=== PATIENT | female | born 2000 | race Asian ===

== ENCOUNTER 2023-02-19 18:27 | Emergency (ER) | payer OTHER, SELFPAY ==
[2023-02-19 18:33] VITALS: BP 129/84; PULSE 102; RESP 18; TEMP 37.5; O2SAT 100; BMI 16.6
--- NOTE | 2023-02-19 18:43 | ED_ITS ---
HPI - General Adult General Time Seen by Provider: 18:43 Date Seen: 02/19/23 Chief complaint: Chest Pain Stated complaint: Chest pains Time Seen by Provider: 02/19/23 18:37 Source: patient Mode of arrival: ambulatory Limitations: no limitations History of Present Illness HPI narrative: 22-year-old female comes in today with chest pain. Patient is intermittent substernal chest pain for the last couple of days. Worse lying down and sitting, better standing walking. Feels like she has to concentrate get a deep breath. No cough. She does relate being hit in the chest while playing basketball couple weeks ago, but pain did not start at that time. No nausea, vomiting, diarrhea, fever. Has not taken anything for her pain. Related Data Home Medications Medication Instructions Recorded Confirmed norelgestromin 150 mcg-e.estradiol patch transdermal 02/19/23 35 mcg/24 hr weekly transderm patch (Zafemy) Allergies Allergy/AdvReac Type Severity Reaction Status Date / Time amoxicillin Allergy Verified 02/19/23 18:36 PFSH PFSH Social History Smoking Status: Never smoker Do you use any of these nicotine containing products: None How often do you have a drink containing alcohol: never AUDIT-C Alcohol total score: 0 Non-prescribed substance use: denies use Exam Narrative: Exam Narrative: General: Well-developed and well-nourished, no acute distress Head: Atraumatic and normocephalic Eyes: Pupils are equal reactive, extraocular motions intact, conjunctiva clear ENT: External nose and ears are normal, posterior pharynx without erythema or exudate Neck: No midline cervical tenderness, full spontaneous range of motion the neck, trachea midline, no adenopathy Heart: Tachycardia, no rub or murmur Lungs: Clear to auscultation bilaterally without wheezes or crackles, right chest wall /sternocostal tenderness which reproduces complaint Abdomen: Soft, nontender, nondistended with active bowel sounds Musculoskeletal: No tenderness, deformity, or edema Neurologic: Awake, alert, and oriented x3, no gross focal neurologic deficits, cranial nerves intact as tested Psych: Mood and affect are appropriate Skin: No rashes Const: Vital Signs, click to edit/add: Vital Signs - 24 hr 02/19/23 18:33 02/19/23 20:27 02/19/23 20:28 Temperature 99.5 F 97.9 F Pulse Rate [Right Pulse Oximeter] 102 H 95 Respiratory Rate 18 16 Blood Pressure 139/92 H Blood Pressure [Le ft Upper Arm] 129/84 139/87 Pulse Oximetry 100 95 Oxygen Delivery Me thod Room Air Room Air Course Course Hospital Course: patient seen examined, prior records are reviewed. Patient presents today with chest pain which is been going on for couple of days. Not consistent, not related to activity but does seem worse lying down raising possibility of pericarditis. Patient also is noted to be tachycardic and is on control pills, concern for possible pulmonary embolism although no shortness of breath or pleuritic pain. Labs are ordered along with CT PE study to evaluate for pericardial effusion, pulmonary embolism. Reevaluation(s) Time of Reevaluation #1: 19:52 Reevaluation #1: Labs independently interpreted by me with the negative CBC, normal basic panel, negative troponin. test is negative. CT PE protocol is pending. Time of Reevaluation #2: 20:31 Reevaluation #2: CT scan of the chest independently interpreted by me does not demonstrate any central pulmonary emboli, no pericardial effusion or cardiomegaly, lungs are without infiltrate or effusion. Symptoms are most consistent with costochondritis. Patient will be started on prednisone and stable for discharge. Follow-up with primary care as needed. May take Tylenol or ibuprofen as needed for pain also. Vital Signs Vital signs: Initial Vital Signs Temperature 99.5 F 02/19/23 18:33 Temperature Source Temporal Artery Scan 02/19/23 18:33 Pulse Rate 102 H 02/19/23 18:33 Respiratory Rate 18 02/19/23 18:33 Blood Pressure 129/84 02/19/23 18:33 Blood Pressure Mean 99 02/19/23 18:33 Blood Pressure Position Sitting 02/19/23 18:33 Pulse Oximetry 100 02/19/23 18:33 Oxygen Delivery Method Room Air 02/19/23 18:33 Vital Signs Temperature 99.5 F 02/19/23 18:33 Pulse Rate 102 H 02/19/23 18:33 Respiratory Rate 18 02/19/23 18:33 Blood Pressure 129/84 02/19/23 18:33 Pulse Oximetry 100 02/19/23 18:33 Oxygen Delivery Method Room Air 02/19/23 18:33 Temperature 97.9 F 02/19/23 20:27 Pulse Rate 95 02/19/23 20:27 Respiratory Rate 16 02/19/23 20:27 Blood Pressure 139/92 H 02/19/23 20:28 Pulse Oximetry 95 02/19/23 20:27 Oxygen Delivery Method Room Air 02/19/23 20:27 Medical Decision Making Lab Data Labs: Lab Results 02/19/23 02/19/23 Range/Units 19:05 19:06 WBC 10.18 (4.50-11.00) K/uL RBC 5.16 (4.00-5.20) m/uL Hgb 14.7 (12.0-16.0) gm/dL Hct 43.8 (33.0-51.0) % MCV 85 (80-100) fL MCH 29 (26-34) pg MCHC 34 (32-36) gm/dL RDW Coeff of Home 12.1 (11.5-15.5) % Plt Count 351 (140-440) K/uL Neut % (Auto) 38.3 L (42.0-72.0) % Lymph % (Auto) 55.8 H (20-44) % Wood % (Auto) 4.6 (0.0-11.0) % Eos % (Auto) 0.7 (0.0-7.0) % Baso % (Auto) 0.5 (0.0-3.0) % Neut # (Auto) 3.90 (1.7-7.0) K/uL Lymph # (Auto) 5.70 H (0.90-2.90) K/uL Wood # (Auto) 0.50 (0.00-0.90) K/UL Eos # (Auto) 0.07 (0.00-0.50) K/uL Baso # (Auto) 0.05 (0.00-0.30) K/uL Abs Immat Gran (auto) 0.01 (0.00-0.30) K/uL Imm/Tot Granulo (auto) 0.1 % Diff Slide Review Acceptable Review (Acceptable) Sodium 137 (135-149) mmol/L Potassium 3.6 (3.6-5.1) mmol/L Chloride 103 (96-114) mmol/L Carbon Dioxide 28 (20-32) mmol/L BUN 15 (5-24) mg/dL Creatinine 0.8 (0.5-1.5) mg/dL Estimated Creat Clear 64.22 Estimated GFR 106 ml/min Glucose 89 (60-115) mg/dL Calcium 9.1 (8.4-10.6) mg/dL Magnesium 1.7 (1.5-2.6) mg/dL C-Reactive Protein < 0.5 L (0.5-1.0) mg/dL HCG, Qual Negative (Negative) POC Troponin I 0.00 L (0.01-0.04) ng/ml Discharge Plan Discharge Clinical Impression: Acute costochondritis Patient Disposition: Home, Self-Care Condition: Stable Instructions: Costochondritis (ED) Additional Instructions: Take prednisone as prescribed. Take Tylenol and ibuprofen as needed for pain. Ice before and after activity. Follow-up with your primary care doctor in 1 week if not feeling better. Activity Level: Activity as Tolerated Prescriptions: No Action Zafemy 150-35 mcg/24 hr patch weekly transdermal Stand Alone Forms: [employer] Info Instructions
--- NOTE | 2023-02-19 18:46 | CRLHL7_ITS ---
For Patients: As a result of the Century Cures Act, medical imaging exams and procedure reports are released immediately into your electronic medical record. You may view this report before your referring provider. If you have questions, please contact your health care provider. INDICATION: Chest pain, shortness of breath, tachycardia. TECHNIQUE: CT chest PE was acquired with 80 cc Isovue 370 IV contrast. Permanently recorded images are archived. COMPARISON: None. FINDINGS: Heart and vasculature: Contrast opacification of the pulmonary arterial tree is adequate. No sign of pulmonary embolism. Heart size is normal. Thoracic aorta and pulmonary artery are normal in caliber. Lungs and pleura: No suspicious nodules or consolidation. No pleural effusions or pneumothorax. Lymph nodes/mediastinum: No mediastinal, hilar, or axillary adenopathy. Chest wall: No masses. Thyroid: Unremarkable. Upper abdomen: No acute or significant findings. Bones: Unremarkable for age. IMPRESSION: No pulmonary embolism. Unremarkable CT of the chest. No acute findings. Please note that all CT scans at this facility use dose modulation, iterative reconstruction, and/or weight-based dosing when appropriate to reduce radiation dose to as low as reasonably achievable. Dictated by Dinh Monique MD @ 02/19/2023 9:15:24 PM (Electronically Signed)
[2023-02-19 19:25] LABS: Basophils Absolute Auto 0.05 K/uL (0.00-0.30); Basophils Percent Auto 0.5 % (0.0-3.0); Eosinophils Absolute Auto 0.07 K/uL (0.00-0.50); Eosinophils Percent Auto 0.7 % (0.0-7.0); Hematocrit 43.8 % (33.0-51.0); Hemoglobin* 14.7 gm/dL (12.0-16.0); Immature Granulocytes Abs Auto 0.01 K/uL (0.00-0.30); Immature Granulocytes Pct Auto 0.1 %; Lymphocytes Percent Auto 55.8 % (20-44); Mean Corpuscular HGB Conc 34 gm/dL (32-36); Mean Corpuscular Hemoglobin 29 pg (26-34); Mean Corpuscular Volume 85 fL (80-100); Monocytes Percent Auto 4.6 % (0.0-11.0); Neutrophils Percent Auto 38.3 % (42.0-72.0); Platelet Count* 351 K/uL (140-440); RDW Coefficient of Variation % 12.1 % (11.5-15.5); Red Blood Count 5.16 m/uL (4.00-5.20); White Blood Count* 10.18 K/uL (4.50-11.00)
[2023-02-19 19:29] LABS: Slide Review Reflex Yes
[2023-02-19 19:36] LABS: Chloride* 103 mmol/L (96-114); Potassium* 3.6 mmol/L (3.6-5.1); Sodium* 137 mmol/L (135-149)
[2023-02-19 19:39] LABS: Creatinine* 0.8 mg/dL (0.5-1.5); Est. Creatinine Clearance* 64.22; Estimated Glomerular Filt Rate 106 ml/min; HCG Qualitative Serum* Negative (Negative)
[2023-02-19 19:40] LABS: Blood Urea Nitrogen* 15 mg/dL (5-24); Calcium* 9.1 mg/dL (8.4-10.6); Carbon Dioxide* 28 mmol/L (20-32); Glucose* 89 mg/dL (60-115); Magnesium* 1.7 mg/dL (1.5-2.6)
[2023-02-19 19:49] LABS: C Reactive Protein* < 0.5 mg/dL (0.5-1.0)
[2023-02-19] MEDS: 0.9 % SODIUM CHLORIDE 1000 ml 1,000 ML 500 ML IV (20:00)
[2023-02-19 20:06] LABS: Slide Review Acceptable Review (Acceptable)
[2023-02-19 20:27] VITALS: BP 139/87; PULSE 95; RESP 16; TEMP 36.6; O2SAT 95
[2023-02-19 20:28] VITALS: BP 139/92
== END 2023-02-19 21:28 | disposition home or self-care (01) ==
PROVIDERS: Emergency Provider Family Medicine
DX: M94.0 Chondrocostal junction syndrome [Tietze] (principal)
CPT/HCPCS: 36415; 71260; 80048; 83735; 84484; 84703; 85025; 86140; 93005; 99284; 99285; J7030; Q9967

== ENCOUNTER 2023-07-23 17:02 | Emergency (ER) | payer BC, SELFPAY ==
[2023-07-23 17:20] VITALS: BP 131/92; PULSE 86; RESP 16; TEMP 36.6; O2SAT 99; BMI 15.3
--- NOTE | 2023-07-23 17:24 | CRLHL7_ITS ---
For Patients: As a result of the Century Cures Act, medical imaging exams and procedure reports are released immediately into your electronic medical record. You may view this report before your referring provider. If you have questions, please contact your health care provider. INDICATION: Injury. TECHNIQUE: Right ankle 3 views. Permanently recorded images are archived. COMPARISON: None. FINDINGS: Questionable lucency within the base of the 5th metatarsal, which is only partially imaged. No other evidence for fracture. Alignment is normal. No joint effusion. The joint spaces are preserved. The soft tissues are unremarkable. IMPRESSION: Questionable lucency within the base of the 5th metatarsal. Recommend correlation with site for focal tenderness, and dedicated foot radiographs, if clinical concern persists. Dictated by Dinh Monique MD @ 07/23/2023 6:25:06 PM (Electronically Signed)
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
--- NOTE | 2023-07-23 21:30 | ED.NURSE ---
Pt on phone with MD regarding radiology results.
== END 2023-07-23 18:25 | disposition home or self-care (01) ==
LOC: ED 18:12
PROVIDERS: Emergency Provider Family Medicine
DX: S93.401A Sprain of unspecified ligament of right ankle, initial encounter (principal); W19.XXXA Unspecified fall, initial encounter
CPT/HCPCS: 73610; 95992; 99283

== ENCOUNTER 2024-11-08 21:00 | Observation (INO) | payer BC, SELFPAY ==
[2024-11-08] VITALS (9 sets, daily range): BP systolic 115–123; BP diastolic 80–89; PULSE 82–104; RESP 16; TEMP 36.8; O2SAT 97–100; BMI 18.7
--- OUTSIDE RECORDS SUMMARY | 2024-11-08 21:02 | XMS_ITS | Clinical Summary ---
[facility] Address [address] [place] [address] Care Team Providers Care Email Manager Name Role Phone Janet Rodgers MD Primary Care Provider Source Comments You are receiving this document as you are listed as the primary care provider,follow-up provider, or the patient has been referred to you for consultation.This is in compliance with the Medicare and[facility] Hospital[facility] EHR Incentive Program,which states Providers who transition their patient to another setting of careor provider of care or refers their patient to another provider of care shouldprovide summary care record for each transition of care or referral. [facility] Allergies Active Allergy Reactions Criticality Noted Date Comments Amoxicillin Hives,Itching High 02/27/2023 Escitalopram Gastrointestinal Low 11/18/2017 Sertraline Gastrointestinal Low 11/18/2017 Medications hydrOXYzine HCl (ATARAX) 10 MG tabletIndicatio ns:Anxiety Take 1-2 Tablets (10-20 mg) by mouth three times a day as needed for Itching (or sedation) for up to 60 doses. Indications: Feeling Anxious 60 Tablet 1 01/20/2024 Active Active Problems Problem Noted Date Diagnosed Date Fibroids, subserous 11/15/2023 Dysmenorrhea 11/15/2023 RLQ abdominal pain 11/01/2023 Intermenstrual bleeding 11/01/2023 Positive QuantiFERON-TB Gold test 09/18/2023 History of abnormal cervical Pap smear 11/04/202 2 Overview (12/19/2023): [facility] Review: History: 05/2022: ASCUS (age 22) 11/2023: NILM Plan, per ASCCP guidelines: Repeat cytology only in 12 months (11/2024) Patellofemoral pain syndrome of both knees 05/29 Abdominal pain 05/29/2022 Nausea 05/29/2022 Mild episode of recurrent major depressive disor radha 10/03/2017 Anxiety 03/26/2016 Underweight 03/26/2016 Resolved Problems Problem Noted Date Diagnosed Date Resolved Date Alternating constipation and diarrhea 05/29/2022 07/10/2023 Adjustment insomnia 10/03/2017 05/28/20 22 Passive suicidal ideations 10/03/2017 1 Immunizations Immunization Administration Dates Next Due 4vHPV (Gardasil) 05/22/2012,01/14/2012, 2 DTaP 10/06/2002, 1,1999,1999,1999 Flu Vac Preserv Free (3+yrs) 05/22/2012,05/22/20 10 [id number] 07/20/2009 HepA Ped/Adol (1-18 yrs) 05/22/2010,02/03/2007 HepB Ped/Adol (0-18 yrs) 03/17/2004,11/12/2003,1 IPV (Polio) 10/06/2002, 1,1999,1999,1999 Influenza IIV4 (Quadrivalent ) 0.5mL (04649) 08/23/2017 Influenza LAIV3 2-49 years (Flumist) 06/25/2007 MCV4 (Menactra) 10/30/2011 MCV4 Menveo 2m.+ (two vial) 03/26/2016 MMR 11/12/2003,04/16/2000 TB Skin Test (PPD) 11/15/2020 TDAP (ADACEL) 10/30/2011 Tdap 05/28/2022 Varicella 02/03/2007,05/05/2003 Family History Medical History Relation Name Comments Heart Disease Maternal Grandfather Diabetes Maternal Grandmother No Known Problems Paternal Grandfather Thyroid Disorder Sister Cancer Negative Family History Relation Name Status Comments Father young, unk nown cause Mother in childbi rth Brother Maternal Grandfather Maternal Grandmother Paternal Grandfather Paternal Grandmother Sister Alive Social History Tobacco Use Types Packs/Day Years Used Date Smoking Tobacco: Never Smokeless Tobacco: Never Tobacco Cessation:Counseling Given: Not Answered Alcohol Use Standard Drinks/Week Comments Yes 1 (1 standard drink = 0.6 oz pur e alcohol) PHQ-2 Answer Date Recorded PHQ-2 Score 2 12/17/2023 Financial Resource Strain Answer Date R ecorded Is it hard for you to pay fo r the very basics like food, housing, medical care or heating? No 07/07/2023 Food Insecurity Answer Date Recorded Does your food run out before you have the money to buy more? No 07/07/2023 Transportation Needs Answer Date Record ed Does a lack of transportatio n keep you from your medical appointments or from getting your medications? 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 Not on file No t on file Not on file Last Filed Vital Signs Vital Sign Reading Time Taken Comments Blood Pressure 112/79 11/15/2023 11:32 AM CDT Pulse 76 11/15/2023 11:32 AM CDT Temperature 37.2 C (99 F) 06/14/2019 12:09 PM [employer] Respiratory Rate 18 06/14/2019 12:09 PM [employer] Oxygen Saturation 100% 06/14/2019 12:09 PM [employer] Inhaled Oxygen Concentration - - Weight 38.6 kg (85 lb) 07/07/2024 4:59 PM [employer] Height 150.5 cm (4' 11.25) 11/15/2023 11:32 AM CDT Body Mass Index 17.02 11/15/2023 11:32 AM CDT Plan of Treatment Health Maintenance Due Date Last Done Comments COVID-19 Vaccine ( season) 2024 Influenza (#1) 2024 08/23/2017, 05/05, 05/22/2010, Additional history exists Cervical Cancer Screening 11/14/2024 11/15/2023, Chlamydia 11/14/2024 11/15/2023, 05/06, 10/03/2017, Additional history exists Adult Preventive Visit 11/14/2025 11/15/2023, 2021 DTaP/Tdap/Td (7 - Tdap) 05/28/2032 05/28/20, 10/30/2011, 10/06/2002, Additional history exists Zoster/Shingles (1 of 2) 2049 IPV (Polio) Completed 10/06/2002, 10/03, 1999, Additional history exists HepB Completed 03/17/2004, 04/2004, 05/05/2003 Varicella Completed 02/03/2007, 05/05/2003 HepA Completed 05/22/2010, 02/03/2007 HPV Vaccine Completed 05/22/2012, 01/03, 11/02/2011 MCV4 Completed 03/26/2016, 10/30/2011 Tuberculosis Screening Completed 09/17/2023 HIV Screening (Preventive Services) Completed 11/15/2023, 05/28/2022 Hep B Screening ([employer]) Completed 11/15/2023 Hep C Screening (Preventive Services) Completed 11/15/2023, 05/28/2022 Hib Aged Out No longer eligi ble based on patient's age to complete this topic Meningococcal B Aged Out No longer el igible based on patient's age to complete this topic Pneumococcal Aged Out No longer eligi ble based on patient's age to complete this topic Procedures Procedure Name Priority Date/Time Associated Diagnosis Comments HBSAG (HEPATITIS B SURFACE AG) Routine 11/15/2023 12:15 PM CDT Screening examination for venereal disease HIV 1/2 AG/AB 4TH GEN Routine 11/15/2023 12:15 PM CDT Screening examination for venereal disease HEPATITIS C ANTIBODY, WITH REFLEX Routine 11/15/2023 12:15 PM CDT Special screening examination for viral disease CHLAMYDIA & GC (14 YEARS & OLDER) Routine 11/15/2023 12:11 PM CDT Screening examination for venereal disease CYTOLOGY (PAP) Routine 11/15/2023 12:11 PM CDT Screening for malignant neoplasm of cervix TB QUANTIFERON GOLD PLUS Routine 09/17/2023 10:18 AM [employer] PPD screening test from Last 3 Months or Most Recently Relevant to Health Maintenance Results * HIV 1/2 Ag/Ab 4th Generation (11/15/2023 12:15 PM CDT) HIV 1/2 Antigen/Antib fausto (4th generation) Negative (Non Reactive) Negative (Non Reactive) 11/15/2023 6:34 PM CDT [facility] Comment:HIV-1 p24 Antigen an d HIV-1/HIV-2 Antibody not detected Blood Venipuncture / Unknown 11/15/2023 12:15 PM CDT 11/15/2023 12:15 PM CDT Marika Martinez MD LAB_1 Final Result Performing Organization Address [facility] de Phone Number [facility] [address] [place] [address] * Hepatitis C Antibody, with Reflex (11/15/2023 12:15 PM CDT) Pathologist [facility] Hepatitis C Antibody Negative (Non Reactive) Negative (Non Reactive) 11/15/2023 6:34 PM CDT [facility] Comment:Antibodies to HCV no t detected. Does not exclude the possiblity of exposure to HCV. Blood Venipuncture / Unknown 11/15/2023 12:15 PM CDT 11/15/2023 12:15 PM CDT Marika Martinez MD LAB_1 Final Result Performing Organization Address City/[facility]/ZIP Co de Phone Number [facility] [address] [place] [address] * Hepatitis B Surface Antigen (11/15/2023 12:15 PM CDT) Hepatitis B Surface Antigen Negative (Non Reactive) Negative (Non Reactive) 11/15/2023 6:46 PM CDT [facility] Blood Venipuncture / Unknown 11/15/2023 12:15 PM CDT 11/15/2023 12:15 PM CDT us Marika Martinez MD LAB_1 Final Result [facility] [address] * PAP Test (11/15/2023 12:11 PM CDT) Case Report Pap Case: [id number] Authorizing Provider: Marika Martinez MD Collected: 11/15/2023 1211 Ordering Location: [facility] OB-INSTRUCTIONAL SUPPORT ASSISTANT Received: 11/15/[address] [place] [address] Screen: Day Stevenson E, CT (ASCP) Specimen: Pap Test, Routine, Cervix/Endocervix 12/09/2023 11:50 AM CDT [facility] Pap Specimen Adequacy Satisfactory for evaluation, endocervical/sanab[place] sformation zone component present. 12/09/2023 11:50 AM CDT [facility] Pap Interpretation (NILM) Negative for intraepithelial lesion or malignancy. 12/09/2023 11:50 AM CDT [facility] at 1150 CDT Pap Disclaimer The Pap test is a screening test to aid in the detection of cervical and vaginal cancers and their precursor lesions. It is not a diagnostic procedure and should not be used as the sole means of detecting malignancy. Both false-positive and false-negative results may occur. 12/09/2023 11:50 AM CDT [facility] Gross Description The specimen is received in SurePath fixative and properly labeled. 1 Pap-stained SurePath slide is prepared. 12/09/2023 11:50 AM CDT [facility] Embedded Images 05/06/202 4 11:50 AM CDT [facility] Other Specimen Type ENTIRE ENDOCERVIX / Unknown 11/15/2023 12:11 PM CDT 11/15/2023 3:10 PM CDT Comment:LMP: Patient's last menstrual period was 11/01/2023 (approximate). Marika Matrinez MD LAB PATHOLOGY Final Result Performing Organization Address City/[facility]/ZIP Co de Phone Number [facility] [address] [place], [place] [address] * Chlamydia & GC (14 Years and Older): Vagina (11/15/2023 12:11 PM CDT) Chlamydia Trachomatis STD Not Detected Not Detected 11/16/2023 12:51 AM CDT [facility] N. gonorrhoeae STD Not Detected Not Detected 11/16/2023 12:51 AM CDT [facility] Swab STD SPECIMEN FROM VAGINA / Unknown Non-blood Collection / Unknown 11/15/2023 12:11 PM CDT 11/15/2023 3:10 PM CDT Narrative [facility] - 11/16/2023 12:51 AM CDT Test performed by [employer] Mediated Amplification (TMA). us Marika Martinez MD LAB_1 Final Result Performing Organization Address City/[facility] Co de Phone Number [facility] [address] from Last 3 Months or Most Recently Relevant to Health Maintenance Insurance [facility] Care Teams Email Manager Relationship Specialty [place] [address] [address] [address] PCP - General 01/14/12
[2024-11-08 21:53] LABS: Basophils Percent Auto 0.2 % (0.0-3.0); Eosinophils Percent Auto 0.5 % (0.0-7.0); Hematocrit 39.4 % (33.0-51.0); Hemoglobin* 13.3 gm/dL (12.0-16.0); Immature Granulocytes Pct Auto 0.2 %; Lymphocytes Percent Auto 20.4 % (20-44); Mean Corpuscular HGB Conc 34 gm/dL (32-36); Mean Corpuscular Hemoglobin 29 pg (26-34); Mean Corpuscular Volume 84 fL (80-100); Monocytes Percent Auto 5.5 % (0.0-11.0); Neutrophils Percent Auto 73.2 % (42.0-72.0); Platelet Count* 318 K/uL (140-440); RDW Coefficient of Variation % 12.2 % (11.5-15.5); Red Blood Count 4.67 m/uL (4.00-5.20); White Blood Count* 22.37 K/uL (4.50-11.00)
[2024-11-08 21:55] LABS: Slide Review Reflex No
[2024-11-08] MEDS: 0.9 % SODIUM CHLORIDE 1000 ml 1,000 ML IV (21:56)
[2024-11-08] MEDS: ONDANSETRON 2 MG/ML inj 4 MG IVP (21:57)
[2024-11-08] MEDS: HYDROmorphone 0.5 mg/0.5 ml inj IVP (21:58)
[2024-11-08 22:05] LABS: Albumin* 4.4 g/dL (3.3-5.0); Chloride* 103 mmol/L (96-114)
[2024-11-08 22:06] LABS: Potassium* 3.7 mmol/L (3.6-5.1); Sodium* 136 mmol/L (135-149)
[2024-11-08 22:08] LABS: Blood Urea Nitrogen* 16 mg/dL (5-24); Creatinine* 0.6 mg/dL (0.5-1.5); Est. Creatinine Clearance* 91.86; Estimated Glomerular Filt Rate 128 ml/min
[2024-11-08 22:09] LABS: Alanine Aminotransferase* 20 U/L (4-35); Alkaline Phosphatase* 64 U/L (40-150); Anion Gap 8 mEq/L (7-15); Aspartate Amino Transferase* 32 U/L (12-35); Bilirubin Direct* 0.3 mg/dL (0.0-0.5); Bilirubin Total* 0.5 mg/dL (0.1-1.5); Calcium* 9.3 mg/dL (8.4-10.6); Carbon Dioxide* 25 mmol/L (20-32); Glucose* 100 mg/dL (60-115); Lipase* 62 U/L (23-300); Total Protein* 7.5 g/dL (6.0-8.3)
[2024-11-08 22:12] LABS: C Reactive Protein* 0.9 mg/dL (0.5-1.0)
[2024-11-08 22:25] LABS: HCG Qualitative Serum* Negative (Negative); Procalcitonin* < 0.03 ng/mL (<0.50)
[2024-11-08 22:52] LABS: Appearance Urine Clear (Clear); Bilirubin Urine Negative (Negative); Blood Urine Negative (Negative); Color Urine Yellow (Yellow); Glucose Urine Negative (Negative); Ketones Urine Negative (Negative); Leukocyte Esterase Urine Trace (Negative); Nitrite Urine Negative (Negative); Protein Urine Negative (Negative); Urobilinogen Urine 0.2 (0.2-1.0)
--- NOTE | 2024-11-08 22:53 | CRLHL7_ITS ---
For Patients: As a result of the Century Cures Act, medical imaging exams and procedure reports are released immediately into your electronic medical record. You may view this report before your referring provider. If you have questions, please contact your health care provider. INDICATION: Right lower quadrant pain. TECHNIQUE: CT abdomen and pelvis acquired with 43 cc Omnipaque 350 IV contrast. COMPARISON: None. FINDINGS: Lower chest: Unremarkable. Liver: Unremarkable. Normal in size and attenuation. No suspicious masses. Gallbladder and bile ducts: Unremarkable. No stones or inflammation. No biliary dilatation. Pancreas: Unremarkable. No mass or inflammation. Spleen: Unremarkable. Normal in size. No masses. Adrenal glands: Unremarkable. No nodules. Kidneys: Unremarkable. No suspicious masses, stones, or hydronephrosis. GI tract: Normal in caliber. No sign of mass or inflammation. Normal appearance of the appendix (, ). Vasculature: Abdominal aorta is normal in caliber. Mesenteric arteries are patent. Lymph nodes: No lymphadenopathy. Peritoneum/Abdominal Wall: Unremarkable. No sign of mass or infiltration. No free air or significant free fluid. Pelvis: Possible mild circumferential bladder wall thickening. Right adnexal cyst measuring 1.6 cm () Bones: Unremarkable for age. IMPRESSION: 1. No definite acute findings to explain the patient`s symptoms. Normal appearance of the appendix. 2. Possible mild circumferential bladder wall thickening. Correlate with urinalysis to rule out cystitis. 3. No definite evidence of reproductive organ pathology, but these structures are not well evaluated on CT. Pelvic ultrasound could be considered for more detailed evaluation, if clinically indicated. Please note that all CT scans at this facility use dose modulation, iterative reconstruction, and/or weight-based dosing when appropriate to reduce radiation dose to as low as reasonably achievable. Dictated by Angel Grijalva MD @ 11/08/2024 11:38:48 PM (Electronically Signed)
--- NOTE | 2024-11-08 23:05 | ED_ITS ---
HPI - Abdominal Pain General Date Seen: 11/08/24 <Crescencio Presley MD - Last Filed: 11/09/24 00:23> Chief Complaint: Abdominal Pain <Crescencio Presley MD - Last Filed: 11/09/24 00:23> Stated Complaint: Lower R abdominal pain <Crescencio Presley MD - Last Filed: 11/09/24 00:23> Time Seen by Provider: 11/08/24 21:28 <Crescencio Presley MD - Last Filed: 11/09/24 00:23> Source: patient, family, RN notes reviewed and old records reviewed <Crescencio Presley MD - Last Filed: 11/09/24 00:23> Mode of arrival: ambulatory <Crescencio Preslye MD - Last Filed: 11/09/24 00:23> Limitations: no limitations <Crescencio Presley MD - Last Filed: 11/09/24 00:23> History of Present Illness HPI narrative: Patient is a very nice 24-year-old female who presents here with right- sided abdominal pain this started approximately 2:00 a.m. today no history of any problems in the past such as kidney stone or other issues she denies any history of any a previous abdominal surgery denies any vaginal discharge thinks she probably is not but she gets her periods very irregularly. He is sexually active with 1 partner was with her here. No history of STDs in the past. Denies any fevers chills or sweats, did eat some food today, but a little less than normal, hurts to walk she describes to me, no radiation of pain, no nausea no vomiting, no diarrhea no dysuria frequency. <Crescencio Presley MD - Last Filed: 11/09/24 00:23> MD elicited complaint: abdominal pain <Crescencio Presley MD - Last Filed: 11/09/24 00:23> Pertinent past history: none <Crescencio Presley MD - Last Filed: 11/09/24 00:23> Onset (ago): hour(s) <Crescencio Presley MD - Last Filed: 11/09/24 00:23> Pain Consistency: constant <Crescencio Presley MD - Last Filed: 11/09/24 00:23> Location: RLQ <Crescencio Presley MD - Last Filed: 11/09/24 00:23> Severity: moderate <Crescencio Presley MD - Last Filed: 11/09/24 00:23> Quality: stabbing <Crescencio Presley MD - Last Filed: 11/09/24 00:23> Radiation: none <Crescencio Presley MD - Last Filed: 11/09/24 00:23> Migration to: no migration <Crescencio Presley MD - Last Filed: 11/09/24 00:23> Exacerbating factors: movement <Crescencio Presley MD - Last Filed: 11/09/24 00:23> Relieving factors: rest <Crescencio Presley MD - Last Filed: 11/09/24 00:23> Associated symptoms: denies other symptoms <Crescencio Presley MD - Last Filed: 11/09/24 00:23> Related Data Patient : No <Crescencio Presley MD - Last Filed: 11/09/24 00:23> Home Medications: Home Medications ?Medication ?Instructions ?Recorded ?Confirmed norelgestromin 150 mcg-e.estradiol 1 patch transdermal 02/19/23 35 mcg/24 hr weekly transderm patch (Zafemy) <Crescencio Presley MD - Last Filed: 11/09/24 00:23> Allergies/Adverse Reactions: Allergies Allergy/AdvReac Type Severity Reaction Status Date / Time amoxicillin Allergy Verified 11/08/24 23:15 <Crescencio Presley MD - Last Filed: 11/09/24 00:23> Review of Systems Status of ROS Reports: 10 or more systems reviewed and unremarkable except as noted in History and below <Crescencio Presley MD - Last Filed: 11/09/24 00:23> PFSH PFSH Social History: Social History Smoking Status: Never smoker Do you use any of these nicotine containing products: None How often do you have a drink containing alcohol: never AUDIT-C Alcohol total score: 0 Non-prescribed substance use: denies use <Crescencio Presley MD - Last Filed: 11/09/24 00:23> Exam Narrative: Exam Narrative: On examination in room 7, she is pleasant and alert, pupils equal round reactive to light there is no scleral icterus redness or TMs are normal oropharynx is normal there is no adenopathy anterior posterior chains her chest is good air entry bilaterally no wheezing crackles noted her heart sounds are normal no clicks murmurs or gallops her abdomen shows tenderness in the right lower quadrant on [id number] palpation, no peritoneal signs are noted, negative Valdez sign, no CVA tenderness, jump test is mildly positive on the right. Skin result petechiae rashes neurologically intact moving all extremities. <Crescencio Presley MD - Last Filed: 11/09/24 00:23> Const: Vital Signs, click to edit/add: Vital Signs - 24 hr 11/08/24 21:16 11/08/24 21:33 11/08/24 22:01 Temperature 98.3 F Pulse Rate 104 H 93 Pulse Rate [Left P ulse Oximeter] 82 Respiratory Rate 16 Blood Pressure Blood Pressure [Ri ght Upper Arm] 118/84 Pulse Oximetry 98 100 97 Oxygen Delivery Me thod Room Air 11/08/24 22:02 11/08/24 22:15 11/08/24 22:21 Temperature Pulse Rate 93 86 88 Pulse Rate [Left P ulse Oximeter] Respiratory Rate Blood Pressure 115/80 116/85 Blood Pressure [Ri ght Upper Arm] Pulse Oximetry 98 97 98 Oxygen Delivery Me thod 11/08/24 22:22 11/08/24 22:30 11/08/24 22:42 Temperature Pulse Rate 88 82 Pulse Rate [Left P ulse Oximeter] Respiratory Rate Blood Pressure 123/89 Blood Pressure [Ri ght Upper Arm] Pulse Oximetry 99 98 Oxygen Delivery Me thod <Crescencio Presley MD - Last Filed: 11/09/24 00:23> Vital Signs, click to edit/add: Vital Signs - 24 hr 11/08/24 21:16 11/08/24 21:33 11/08/24 22:01 Temperature 98.3 F Pulse Rate 104 H 93 Pulse Rate [Left P ulse Oximeter] 82 Respiratory Rate 16 Blood Pressure Blood Pressure [Ri ght Upper Arm] 118/84 Pulse Oximetry 98 100 97 Oxygen Delivery Me thod Room Air 11/08/24 22:02 11/08/24 22:15 11/08/24 22:21 Temperature Pulse Rate 93 86 88 Pulse Rate [Left P ulse Oximeter] Respiratory Rate Blood Pressure 115/80 116/85 Blood Pressure [Ri ght Upper Arm] Pulse Oximetry 98 97 98 Oxygen Delivery Me thod 11/08/24 22:22 11/08/24 22:30 11/08/24 22:42 Temperature Pulse Rate 88 82 Pulse Rate [Left P ulse Oximeter] Respiratory Rate Blood Pressure 123/89 Blood Pressure [Ri ght Upper Arm] Pulse Oximetry 99 98 Oxygen Delivery Me thod <Roman Sung MD - Last Filed: 11/09/24 02:19> Documenting provider has reviewed patient's vital signs: yes <Crescencio Presley MD - Last Filed: 11/09/24 00:23> Course Course ED Course: Patient's white count was elevated at [address] scan did not show any evidence of a cause for this. She continues to have some right lower quadrant pain I think it would be reasonable to do a transvaginal ultrasound to further delineate what is going on with her. I will sign her out to my partner for further care, if the ultrasound is negative then I think watchful waiting and follow up with primary care would be in order. <Crescencio Presley MD - Last Filed: 11/09/24 00:23> Reevaluation(s) Time of Reevaluation #1: 01:08 <Roman Sung MD - Last Filed: 11/09/24 02:19> Reevaluation #1: Patient accepted in sign-out from prior provider, presents with right lower quadrant abdominal pain. Patient finally stable on initial exam, leukocytosis white blood cell count 60014, normal basic panel, normal hepatic panel, test light if, procalcitonin negative, urinalysis without evidence for infection, pelvic ultrasound negative for acute findings. Patient seen and reexamined, reviewed findings. Patient is markedly tender in the right lower quadrant. With degree of tenderness and discomfort as well as leukocytosis, still concern for acute infectious process including appendicitis. Discussed disposition with the patient. I recommend overnight observation for pain management and also repeat evaluation by general surgery in the morning. <Roman Sung MD - Last Filed: 11/09/24 02:19> Time of Reevaluation #2: 02:08 <Roman Sung MD - Last Filed: 11/09/24 02:19> Reevaluation #2: Care discussed with Dr. Georges, general surgery who agrees with plan for admission and re-examination morning. Also discussed with Richie hospitalist for admission. <Roman Sung MD - Last Filed: 11/09/24 02:19> Vital Signs Vital signs: Initial Vital Signs Temperature 98.3 F 11/08/24 21:16 Temperature Source Temporal Artery Scan 11/08/24 21:16 Pulse Rate 82 11/08/24 21:16 Pulse Rhythm Regular 11/08/24 21:16 Respiratory Rate 16 11/08/24 21:16 Blood Pressure 118/84 11/08/24 21:16 Blood Pressure Mean 95 11/08/24 21:16 Blood Pressure Position Sitting 11/08/24 21:16 Pulse Oximetry 98 11/08/24 21:16 Oxygen Delivery Method Room Air 11/08/24 21:16 Vital Signs Temperature 98.3 F 11/08/24 21:16 Pulse Rate 82 11/08/24 21:16 Respiratory Rate 16 11/08/24 21:16 Blood Pressure 118/84 11/08/24 21:16 Pulse Oximetry 98 11/08/24 21:16 Oxygen Delivery Method Room Air 11/08/24 21:16 Temperature 98.3 F 11/08/24 21:16 Pulse Rate 82 11/08/24 22:30 Respiratory Rate 16 11/08/24 21:16 Blood Pressure 123/89 11/08/24 22:42 Pulse Oximetry 98 11/08/24 22:30 Oxygen Delivery Method Room Air 11/08/24 21:16 <Crescencio Presley MD - Last Filed: 11/09/24 00:23> Initial Vital Signs Temperature 98.3 F 11/08/24 21:16 Temperature Source Temporal Artery Scan 11/08/24 21:16 Pulse Rate 82 11/08/24 21:16 Pulse Rhythm Regular 11/08/24 21:16 Respiratory Rate 16 11/08/24 21:16 Blood Pressure 118/84 11/08/24 21:16 Blood Pressure Mean 95 11/08/24 21:16 Blood Pressure Position Sitting 11/08/24 21:16 Pulse Oximetry 98 11/08/24 21:16 Oxygen Delivery Method Room Air 11/08/24 21:16 Vital Signs Temperature 98.3 F 11/08/24 21:16 Pulse Rate 82 11/08/24 21:16 Respiratory Rate 16 11/08/24 21:16 Blood Pressure 118/84 11/08/24 21:16 Pulse Oximetry 98 11/08/24 21:16 Oxygen Delivery Method Room Air 11/08/24 21:16 Temperature 98.3 F 11/08/24 21:16 Pulse Rate 82 11/08/24 22:30 Respiratory Rate 16 11/08/24 21:16 Blood Pressure 123/89 11/08/24 22:42 Pulse Oximetry 98 11/08/24 22:30 Oxygen Delivery Method Room Air 11/08/24 21:16 <Roman Sung MD - Last Filed: 11/09/24 02:19> Medications Administered Medications: Discontinued Medications Generic Name Dose Route Start Last Admin Trade Name Freq PRN Reason Stop Dose Admin Hydromorphone HCl 0.5 mg 11/08/24 21:33 11/08/24 21:58 Hydromorphone 0.5 Mg/0.5 Ml Inj IVP 11/08/24 21:34 0.5 mg ONCE ONE Administration Hydromorphone HCl 0.3 mg 11/09/24 01:31 11/09/24 01:45 Hydromorphone 0.5 Mg/0.5 Ml Inj IVP 11/09/24 01:32 0.3 mg ONCE ONE Administration Sodium Chloride 1,000 mls @ 1,000 mls/hr 11/08/24 21:45 11/09/24 01:12 0.9 % Sodium Chloride 1000 Ml IV 11/08/24 22:44 Infused .Q1H FILIBERTO Infusion Ondansetron HCl 4 mg 11/08/24 21:33 11/08/24 21:57 Ondansetron 2 Mg/Ml Inj IVP 11/08/24 21:34 4 mg ONCE ONE Administration <Crescencio Presley MD - Last Filed: 11/09/24 00:23> Discontinued Medications Generic Name Dose Route Start Last Admin Trade Name Freq PRN Reason Stop Dose Admin Hydromorphone HCl 0.5 mg 11/08/24 21:33 11/08/24 21:58 Hydromorphone 0.5 Mg/0.5 Ml Inj IVP 11/08/24 21:34 0.5 mg ONCE ONE Administration Hydromorphone HCl 0.3 mg 11/09/24 01:31 11/09/24 01:45 Hydromorphone 0.5 Mg/0.5 Ml Inj IVP 11/09/24 01:32 0.3 mg ONCE ONE Administration Sodium Chloride 1,000 mls @ 1,000 mls/hr 11/08/24 21:45 11/09/24 01:12 0.9 % Sodium Chloride 1000 Ml IV 11/08/24 22:44 Infused .Q1H FILIBERTO Infusion Ondansetron HCl 4 mg 11/08/24 21:33 11/08/24 21:57 Ondansetron 2 Mg/Ml Inj IVP 11/08/24 21:34 4 mg ONCE ONE Administration <Roman Sung MD - Last Filed: 11/09/24 02:19> MDM - Abdominal Pain MDM Narrative Medical decision making narrative: During the evaluation of this patient I considered multiple differential diagnosis including life-threatening differentials which are appendicitis, aortic aneurysm, mesenteric ischemia, bowel perforation, ectopic , volvulus and bowel obstruction, other differential diagnosis include but are not limited to inflammatory bowel disease, cholecystitis, pancreatitis, hepatitis, gastritis, GERD, diverticulitis, peptic ulcer disease, pyelonephritis/UTI, renal colic/stone, pelvic inflammatory disease, cervicitis, endometritis, intrauterine , dysfunctional uterine bleeding, ovarian cyst/torsion, spontaneous as well as other etiologies <Crescencio Presley MD - Last Filed: 11/09/24 00:23> Differential Diagnosis Differential diagnosis: Likely abdominal pain and acute appendicitis <Crescencio Presley MD - Last Filed: 11/09/24 00:23> Medical Records Attestation: I reviewed the patient's medical records. <Crescencio Presley MD - Last Filed: 11/09/24 00:23> Lab Data Attestation: I reviewed the patient's lab results. <Crescencio Presley MD - Last Filed: 11/09/24 00:23> Labs: Lab Results 11/08/24 11/08/24 11/09/24 Range/Units 21:45 22:50 01:30 WBC 22.37 H (4.50-11.00) K/uL RBC 4.67 (4.00-5.20) m/uL Hgb 13.3 (12.0-16.0) gm/dL Hct 39.4 (33.0-51.0) % MCV 84 (80-100) fL MCH 29 (26-34) pg MCHC 34 (32-36) gm/dL RDW Coeff of Home 12.2 (11.5-15.5) % Plt Count 318 (140-440) K/uL Neut % (Auto) 73.2 H (42.0-72.0) % Lymph % (Auto) 20.4 (20-44) % Imperial % (Auto) 5.5 (0.0-11.0) % Eos % (Auto) 0.5 (0.0-7.0) % Baso % (Auto) 0.2 (0.0-3.0) % Neut # (Auto) 16.40 H (1.7-7.0) K/uL Lymph # (Auto) 4.60 H (0.90-2.90) K/uL Imperial # (Auto) 1.20 H (0.00-0.90) K/UL Eos # (Auto) 0.10 (0.00-0.50) K/uL Baso # (Auto) 0.00 (0.00-0.30) K/uL Abs Immat Gran (auto) 0.00 (0.00-0.30) K/uL Imm/Tot Granulo (auto) 0.2 % Sodium 136 (135-149) mmol/L Potassium 3.7 (3.6-5.1) mmol/L Chloride 103 (96-114) mmol/L Carbon Dioxide 25 (20-32) mmol/L Anion Gap 8 (7-15) mEq/L BUN 16 (5-24) mg/dL Creatinine 0.6 (0.5-1.5) mg/dL Estimated Creat Clear 91.86 Estimated GFR 128 ml/min Glucose 100 (60-115) mg/dL Lactate 1.2 (0.5-1.9) mmol/L Calcium 9.3 (8.4-10.6) mg/dL Total Bilirubin 0.5 (0.1-1.5) mg/dL Direct Bilirubin 0.3 (0.0-0.5) mg/dL AST 32 (12-35) U/L ALT 20 (4-35) U/L Alkaline Phosphatase 64 (40-150) U/L C-Reactive Protein 0.9 (0.5-1.0) mg/dL Total Protein 7.5 (6.0-8.3) g/dL Albumin 4.4 (3.3-5.0) g/dL Lipase 62 (23-300) U/L Procalcitonin < 0.03 L (<0.50) ng/mL HCG, Qual Negative (Negative) Urine Color Yellow (Yellow) Urine Appearance Clear (Clear) Urine pH 7.0 (5.0-8.5) Ur Specific [place] 1.010 (1.000-1.030) Urine Protein Negative (Negative) Urine Glucose (UA) Negative (Negative) Urine Ketones Negative (Negative) Urine Blood Negative (Negative) Urine Nitrite Negative (Negative) Urine Bilirubin Negative (Negative) Urine Urobilinogen 0.2 (0.2-1.0) Ur Leukocyte Esterase Trace A (Negative) Urine RBC 0-2 (0-2) Urine WBC 2-5 (0-5) Ur Squamous Epith Cells Moderate A (None-Few) Amorphous Sediment Few A (None) Urine Bacteria Few A (None) Urine HCG, Qual Negative (Negative) <Crescencio Presley MD - Last Filed: 11/09/24 00:23> Lab Results 11/08/24 11/08/24 11/09/24 Range/Units 21:45 22:50 01:30 WBC 22.37 H (4.50-11.00) K/uL RBC 4.67 (4.00-5.20) m/uL Hgb 13.3 (12.0-16.0) gm/dL Hct 39.4 (33.0-51.0) % MCV 84 (80-100) fL MCH 29 (26-34) pg MCHC 34 (32-36) gm/dL RDW Coeff of Home 12.2 (11.5-15.5) % Plt Count 318 (140-440) K/uL Neut % (Auto) 73.2 H (42.0-72.0) % Lymph % (Auto) 20.4 (20-44) % Imperial % (Auto) 5.5 (0.0-11.0) % Eos % (Auto) 0.5 (0.0-7.0) % Baso % (Auto) 0.2 (0.0-3.0) % Neut # (Auto) 16.40 H (1.7-7.0) K/uL Lymph # (Auto) 4.60 H (0.90-2.90) K/uL Imperial # (Auto) 1.20 H (0.00-0.90) K/UL Eos # (Auto) 0.10 (0.00-0.50) K/uL Baso # (Auto) 0.00 (0.00-0.30) K/uL Abs Immat Gran (auto) 0.00 (0.00-0.30) K/uL Imm/Tot Granulo (auto) 0.2 % Sodium 136 (135-149) mmol/L Potassium 3.7 (3.6-5.1) mmol/L Chloride 103 (96-114) mmol/L Carbon Dioxide 25 (20-32) mmol/L Anion Gap 8 (7-15) mEq/L BUN 16 (5-24) mg/dL Creatinine 0.6 (0.5-1.5) mg/dL Estimated Creat Clear 91.86 Estimated GFR 128 ml/min Glucose 100 (60-115) mg/dL Lactate 1.2 (0.5-1.9) mmol/L Calcium 9.3 (8.4-10.6) mg/dL Total Bilirubin 0.5 (0.1-1.5) mg/dL Direct Bilirubin 0.3 (0.0-0.5) mg/dL AST 32 (12-35) U/L ALT 20 (4-35) U/L Alkaline Phosphatase 64 (40-150) U/L C-Reactive Protein 0.9 (0.5-1.0) mg/dL Total Protein 7.5 (6.0-8.3) g/dL Albumin 4.4 (3.3-5.0) g/dL Lipase 62 (23-300) U/L Procalcitonin < 0.03 L (<0.50) ng/mL HCG, Qual Negative (Negative) Urine Color Yellow (Yellow) Urine Appearance Clear (Clear) Urine pH 7.0 (5.0-8.5) Ur Specific [place] 1.010 (1.000-1.030) Urine Protein Negative (Negative) Urine Glucose (UA) Negative (Negative) Urine Ketones Negative (Negative) Urine Blood Negative (Negative) Urine Nitrite Negative (Negative) Urine Bilirubin Negative (Negative) Urine Urobilinogen 0.2 (0.2-1.0) Ur Leukocyte Esterase Trace A (Negative) Urine RBC 0-2 (0-2) Urine WBC 2-5 (0-5) Ur Squamous Epith Cells Moderate A (None-Few) Amorphous Sediment Few A (None) Urine Bacteria Few A (None) Urine HCG, Qual Negative (Negative) <Roman Sung MD - Last Filed: 11/09/24 02:19> Imaging Data CT scan - abdomen: Attestation: I have reviewed the pertinent imaging results. <Crescencio Presley MD - Last Filed: 11/09/24 00:23> Radiologist's impression: [place] [address] Diagnostic Imaging Report Patient: Dahlia Schwartz MR#: [id number] : 2000 Acct:[id number] Loc: ED Service Date: 11/08/[address]: Ordering Physician: Crescencio Presley M.D. Date of Service: 11/08/24 Procedure(s): CT abdomen pelvis w con Accession Number(s): [id number] cc: Provider,Not a Local; Crescencio Presley M.D.~ For Patients: As a result of the Cures Act, medical imaging exams and procedure reports are released immediately into your electronic medical record. You may view this report before your referring provider. If you have questions, please contact your health care provider. INDICATION: Right lower quadrant pain. TECHNIQUE: CT abdomen and pelvis acquired with 43 cc Omnipaque 350 IV contrast. COMPARISON: None. FINDINGS: Lower chest: Unremarkable. Liver: Unremarkable. Normal in size and attenuation. No suspicious masses. Gallbladder and bile ducts: Unremarkable. No stones or inflammation. No biliary dilatation. Pancreas: Unremarkable. No mass or inflammation. Spleen: Unremarkable. Normal in size. No masses. Adrenal glands: Unremarkable. No nodules. Kidneys: Unremarkable. No suspicious masses, stones, or hydronephrosis. GI tract: Normal in caliber. No sign of mass or inflammation. Normal appearance of the appendix (2/84, ). Vasculature: Abdominal aorta is normal in caliber. Mesenteric arteries are patent. Lymph nodes: No lymphadenopathy. Peritoneum/Abdominal Wall: Unremarkable. No sign of mass or infiltration. No free air or significant free fluid. Pelvis: Possible mild circumferential bladder wall thickening. Right adnexal cyst measuring 1.6 cm () Bones: Unremarkable for age. IMPRESSION: 1. No definite acute findings to explain the patient`s symptoms. Normal appearance of the appendix. 2. Possible mild circumferential bladder wall thickening. Correlate with urinalysis to rule out cystitis. 3. No definite evidence of reproductive organ pathology, but these structures are not well evaluated on CT. Pelvic ultrasound could be considered for more detailed evaluation, if clinically indicated. Please note that all CT scans at this facility use dose modulation, iterative reconstruction, and/or weight-based dosing when appropriate to reduce radiation dose to as low as reasonably achievable. Dictated by Angel Grijalva MD @ 11/08/2024 11:38:48 PM (Electronically Signed) <Crescencio Presley MD - Last Filed: 11/09/24 00:23> Discharge Plan Discharge Clinical Impression: Abdominal pain, RLQ, Leukocytosis <Crescencio Presley MD - Last Filed: 11/09/24 00:23> Patient Disposition: Admitted As Observation <Crescencio Presley MD - Last Filed: 11/09/24 00:23>
[2024-11-08 23:07] LABS: Amorphous Sediment Urine Few; Bacteria Urine Few; RBC Urine 0-2 (0-2); Squamous Epithelial Cell Urine Moderate (None-Few); Ur HCG Qualitative* Negative (Negative)
--- OUTSIDE RECORDS SUMMARY | 2024-11-08 23:09 | XMS_ITS | Clinical Summary ---
[facility] Organization [facility] Address [address] [place] [address] Care Team Providers Care Ore Tester Name Role Phone Janet Rodgers MD Primary Care Provider Source Comments You are receiving this document as you are listed as the primary care provider,follow-up provider, or the patient has been referred to you for consultation.This is in compliance with the Medicare and[facility] Hospital[facility] EHR Incentive Program,which states Providers who transition their patient to another setting of careor provider of care or refers their patient to another provider of care shouldprovide summary care record for each transition of care or referral. [facility] Allergies Active Allergy Reactions Criticality Noted Date [...] cervical Pap smear 11/04/202 2 Overview (12/19/2023): [facility] Review: History: 05/2022: ASCUS (age 22) 11/2023: [...] Flu Vac Preserv Free (3+yrs) 05/22/2012,05/22/20 10 [id number] 07/20/2009 HepA Ped/Adol (1-18 yrs) 05/22/2010,02/03/2007 HepB Ped/Adol (0-18 yrs) 03/17/2004,11/12/2003,1 IPV (Polio) 10/06/2002, 1,1999,1999,1999 Influenza IIV4 (Quadrivalent ) 0.5mL (15516) 08/23/2017 Influenza LAIV3 2-49 years (Flumist) 06/25/2007 [...] Job Start Date Job End Date 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 Not on file No t on file Not on file Last Filed Vital Signs Vital Sign Reading Time Taken Comments Blood Pressure 112/79 11/15/2023 11:32 AM CDT Pulse 76 11/15/2023 11:32 AM CDT Temperature 37.2 C (99 F) 06/14/2019 12:09 PM DEPORTATION EXAMINER Respiratory Rate 18 06/14/2019 12:09 PM DEPORTATION EXAMINER Oxygen Saturation 100% 06/14/2019 12:09 PM DEPORTATION EXAMINER Inhaled Oxygen Concentration - - Weight 38.6 kg (85 lb) 07/07/2024 4:59 PM DEPORTATION EXAMINER Height 150.5 cm (4' 11.25) 11/15/2023 11:32 [...] Services) Completed 11/15/2023, 05/28/2022 Hep B Screening (GOQii Wizard) Completed 11/15/2023 Hep C Screening (Preventive [...] QUANTIFERON GOLD PLUS Routine 09/17/2023 10:18 AM DEPORTATION EXAMINER PPD screening test from Last 3 Months or Most Recently Relevant to Health Maintenance Results * HIV 1/2 Ag/Ab 4th Generation (11/15/2023 12:15 PM CDT) HIV 1/2 Antigen/Antib fausto (4th generation) Negative (Non Reactive) Negative (Non Reactive) 11/15/2023 6:34 PM CDT [facility] Comment:HIV-1 p24 Antigen an d HIV-1/HIV-2 Antibody not detected Blood Venipuncture / Unknown 11/15/2023 12:15 PM CDT 11/15/2023 12:15 PM CDT Marika Martinez MD LAB_1 Final Result Performing Organization Address [facility] de Phone Number [facility] [address] [place] [address] * Hepatitis C Antibody, with Reflex (11/15/2023 12:15 PM CDT) Pathologist [facility] Hepatitis C Antibody Negative (Non Reactive) Negative (Non Reactive) 11/15/2023 6:34 PM CDT [facility] Comment:Antibodies to HCV no t detected. Does not exclude the possiblity of exposure to HCV. Blood Venipuncture / Unknown 11/15/2023 12:15 PM CDT 11/15/2023 12:15 PM CDT Marika Martinez MD LAB_1 Final Result Performing Organization Address City/[facility]/ZIP Co de Phone Number [facility] [address] [place] [address] * Hepatitis B Surface Antigen (11/15/2023 12:15 PM CDT) Hepatitis B Surface Antigen Negative (Non Reactive) Negative (Non Reactive) 11/15/2023 6:46 PM CDT [facility] Blood Venipuncture / Unknown 11/15/2023 12:15 PM CDT 11/15/2023 12:15 PM CDT us Marika Martinez MD LAB_1 Final Result [facility] [address] * PAP Test (11/15/2023 12:11 PM CDT) Case Report Pap Case: [id number] Authorizing Provider: Marika Martinez MD Collected: 11/15/2023 1211 Ordering Location: [facility] Received: 11/15/[address] [place] [address] Screen: Day Stevenson E, CT (ASCP) Specimen: Pap Test, Routine, Cervix/Endocervix 12/09/2023 11:50 AM CDT [facility] Pap Specimen Adequacy Satisfactory for evaluation, endocervical/sanabria sformation zone component present. 12/09/2023 11:50 AM CDT [facility] Pap Interpretation (NILM) Negative for intraepithelial lesion or malignancy. 12/09/2023 11:50 AM CDT [facility] at 1150 CDT Pap Disclaimer The Pap test is a screening test to aid in the detection of cervical and vaginal cancers and their precursor lesions. It is not a diagnostic procedure and should not be used as the sole means of detecting malignancy. Both false-positive and false-negative results may occur. 12/09/2023 11:50 AM CDT [facility] Gross Description The specimen is received in SurePath fixative and properly labeled. 1 Pap-stained SurePath slide is prepared. 12/09/2023 11:50 AM CDT [facility] Embedded Images 05/06/202 4 11:50 AM CDT [facility] Other Specimen Type ENTIRE ENDOCERVIX / Unknown 11/15/2023 12:11 PM CDT 11/15/2023 3:10 PM CDT Comment:LMP: Patient's last menstrual period was 11/01/2023 (approximate). Marika Martinez MD LAB PATHOLOGY Final Result Performing Organization Address City/[facility]/ZIP Co de Phone Number [facility] [address] [place], [place] [address] * Chlamydia & GC (14 Years and Older): Vagina (11/15/2023 12:11 PM CDT) Chlamydia Trachomatis STD Not Detected Not Detected 11/16/2023 12:51 AM CDT [facility] N. gonorrhoeae STD Not Detected Not Detected 11/16/2023 12:51 AM CDT [facility] Swab STD SPECIMEN FROM VAGINA / Unknown Non-blood Collection / Unknown 11/15/2023 12:11 PM CDT 11/15/2023 3:10 PM CDT Narrative [facility] - 11/16/2023 12:51 AM CDT Test performed by Pick Up Attendant Mediated Amplification (TMA). us Marika Martienz MD LAB_1 Final Result Performing Organization Address City/[facility] Co de Phone Number [facility] [address] from Last 3 Months or Most Recently Relevant to Health Maintenance Insurance [facility] Care Teams Ore Tester Relationship Specialty [place] [id number] [place] [id number] PCP - General 01/14/12
--- NOTE | 2024-11-08 23:46 | CRLHL7_ITS ---
For Patients: As a result of the Century Cures Act, medical imaging exams and procedure reports are released immediately into your electronic medical record. You may view this report before your referring provider. If you have questions, please contact your health care provider. Indication: Pelvic pain, elevated blood cell count Technique: Transabdominal and transvaginal pelvic ultrasound. Grayscale and color Doppler imaging utilized. Comparison: Same day CT Findings: Uterus: 7.1 x 3.0 x 4.2 centimeters. Right subserosal 1.0 centimeter fibroid. Endometrium: 4 millimeters. Endometrium appears homogeneous. Right ovary: 3.3 x 2.0 x 3.2 centimeters. There is a 1.8 centimeter simple appearing cyst. Arterial and venous waveforms detected. Left ovary: 2.9 x 1.5 x 1.5 centimeters. Unremarkable sonographic appearance. Arterial and venous waveforms detected. Other: Mild bladder wall thickening suspected. Impression: 1. Mild bladder wall thickening suspected. Correlation for UTI/cystitis recommended. No other acute sonographic abnormality appreciated. 2. There is a 1.0 centimeter fibroid. Dictated by Tadeo Horne MD @ 11/09/2024 12:59:30 AM (Electronically Signed)
--- NOTE | 2024-11-09 01:20 | CRLHL7_ITS ---
For Patients: As a result of the Cures Act, medical imaging exams and procedure reports are released immediately into your electronic medical record. You may view this report before your referring provider. If you have questions, please contact your health care provider. Indication: Leukocytosis, body aches Technique: Two views of the chest Comparison: None Findings/Impression: Mild prominence of interstitial markings, nonspecific but could be seen with an atypical or viral pneumonia. No organized consolidation is appreciated. Dictated by Tadeo Horne MD @ 11/09/2024 2:20:32 AM (Electronically Signed)
[2024-11-09 01:44] LABS: Lactate* 1.2 mmol/L (0.5-1.9)
[2024-11-09] MEDS: HYDROmorphone 0.5 mg/0.5 ml inj 0.3 MG IVP (01:45)
[2024-11-09 02:41] VITALS: BP 120/87; PULSE 77; RESP 16; TEMP 36.8; O2SAT 100; O2SAT 98; BMI 18.9
--- NOTE | 2024-11-09 03:01 | W.PM.TELEH&P ---
Telehealth- H&P: HPI History of Present Illness Date Seen: 11/09/24 Chief complaint: Lower R abdominal pain Narrative: Dahlia Schwartz is seen as an Interactive Telehealth visit. Dahlia Schwartz is a 24 year old female with no significant PMHx who presented to ED with c/o abdominal pain. Pt reports she developed right lower quadrant pain that started yesterday around 2pm. SHe says pain radiates to her right back area and is worse with walk or moving. She endorses nausea but no vomiting, fever/chills. Last BM was shortly after pain started. She denies any URI infection symptoms. NO cough, chest pain, no burning on urination. Workup in the emergency department showed white count of 22.37, hemoglobin 13.3, hematocrit 39.4, platelets 318, BMP is unremarkable, lactate 1.2, procalcitonin less than 0.03. UA showed trace leukocyte Estrace, urine WBC 2-5 urine nitrates negative. Chest x-ray showed mild prominence of interstitial markings, nonspecific but could be seen with atypical viral pneumonia. No organized consolidation is appreciated. Pelvic ultrasound showed mild bladder wall thickening suspected, correlation for UTI cystitis recommended. No other acute sonographic abnormality appreciated. There is a 1.[address] showed no acute findings glistening patient's symptoms. Normal appearance of appendix. Possible mild circumferential bladder wall thickening, correlate with UA to rule out cystitis. No definite evidence of reproductive organ pathology. With the structures are not well-visualized on CT. CT pelvic ultrasound could be considered. ER provider discussed case with general surgery who recommended the patient be admitted and observed. They will be consulted in the morning. Review of Systems Narrative: Complete ROS was performed, pertinent positives and negatives per HPI. [facility] Social History Smoking Status: Never smoker Do you use any of these nicotine containing products: None How often do you have a drink containing alcohol: never AUDIT-C Alcohol total score: 0 Non-prescribed substance use: denies use Meds Home Medications and Allergies Home Medications ?Medication ?Instructions ?Recorded ?Confirmed ?Type norelgestromin 150 mcg-e.estradiol 1 patch transdermal 02/19/23 History 35 mcg/24 hr weekly transderm patch (Zafemy) Allergies Allergy/AdvReac Type Severity Reaction Status Date / Time amoxicillin Allergy Verified 11/08/24 23:15 Exam Narrative Exam Narrative: Physical Exam GENERAL: ?vital signs reviewed, well developed and nourished, in no distress HEENT: pupils are equal round and reactive to light, oral mucosa is moist. NECK: Supple without lymphadenopathy or thyromegaly according to nursing staff examination observation HEART: Regular rate and rhythm without any rubs, murmurs, or gallops. LUNGS: Clear to auscultation bilaterally with good air movement throughout ABDOMEN: + tenderness on right lower quad EXTREMITIES: Strength and sensation is observed to be grossly within normal limits in the upper and lower extremities.? No focal strength deficit is observed. SKIN:? Observed warm and dry with color normal Const Vital Signs, click to edit/add: Vital Signs - 24 hr 11/08/24 21:16 11/08/24 21:33 11/08/24 22:01 Temperature 98.3 F Pulse Rate 104 H 93 Pulse Rate [Left Pulse Oximeter] 82 Respiratory Rate 16 Blood Pressure Blood Pressure [Right Upper Arm] 118/84 Pulse Oximetry 98 100 97 Oxygen Delivery Method Room Air 11/08/24 22:02 11/08/24 22:15 11/08/24 22:21 Temperature Pulse Rate 93 86 88 Pulse Rate [Left Pulse Oximeter] Respiratory Rate Blood Pressure 115/80 116/85 Blood Pressure [Right Upper Arm] Pulse Oximetry 98 97 98 Oxygen Delivery Method 11/08/24 22:22 11/08/24 22:30 11/08/24 22:42 Temperature Pulse Rate 88 82 Pulse Rate [Left Pulse Oximeter] Respiratory Rate Blood Pressure 123/89 Blood Pressure [Right Upper Arm] Pulse Oximetry 99 98 Oxygen Delivery Method Hospitalist - H&P: Result Labs Labs: Short CBC 11/08/24 Range/Units 21:45 WBC 22.37 H (4.50-11.00) K/uL Hgb 13.3 (12.0-16.0) gm/dL Hct 39.4 (33.0-51.0) % Plt Count 318 (140-440) K/uL BMP 11/08/24 21:45 Sodium 136 Potassium 3.7 Chloride 103 Carbon Dioxide 25 BUN 16 Creatinine 0.6 Glucose 100 Calcium 9.3 Liver Function 11/08/24 Range/Units 21:45 Total Bilirubin 0.5 (0.1-1.5) mg/dL Direct Bilirubin 0.3 (0.0-0.5) mg/dL AST 32 (12-35) U/L ALT 20 (4-35) U/L Alkaline Phosphatase 64 (40-150) U/L Albumin 4.4 (3.3-5.0) g/dL Urine 11/08/24 Range/Units 22:50 Urine Color Yellow (Yellow) Urine Appearance Clear (Clear) Urine pH 7.0 (5.0-8.5) Ur Specific [place] 1.010 (1.000-1.030) Urine Protein Negative (Negative) Urine Glucose (UA) Negative (Negative) Assessment and Plan Assessment and plan (1) Leukocytosis: Status: Acute (2) Abdominal pain, RLQ: Status: Acute Plan Patient is a 24-year-old with no significant past medical history who is presenting with acute onset right lower quadrant pain which is radiating to right back. Ultrasound and CT show evidence of possible bladder wall thickening. UA positive for 1+ leukocytes 3-[address] abdomen pelvis negative for any appendicitis. Pelvic ultrasound negative for any ovarian torsion. General surgery consulted and recommend observation in the hospital Plan - cont with NPO, IV fluids and pain control - General surgery consult in am. - will start on empiric abx to cover for possible cystitis vs appendicitis. # DVt proph - SQH x 1 time dose Telehealth: Statement Statement Telehealth Visit: Today's History and Physical is provided via interactive telehealth by April May MD.? Patient is located at [facility].? Provider is located at [facility] Nursing staff assisted with the patient's exam. The visit being done today meets criteria for a telehealth visit and the patient or patient?s parent/guardian is aware the visit is a telehealth visit. Camera Start Time: 03:05 Camera End Time: 03:20
[2024-11-09] MEDS: 0.9 % SODIUM CHLORIDE 1000 ml 1,000 ML 100 ML IV (04:05)
[2024-11-09] MEDS: cefTRIAXone 2 GM in 0.9 % SODIUM CHLORIDE Mini-bag 100 ML IVPB (04:05)
[2024-11-09] MEDS: SODIUM CHLORIDE 0.9 % (FLUSH) 10 ML SYRINGE 5 ML IVF (04:38)
[2024-11-09] MEDS: HYDROmorphone 0.5 mg/0.5 ml inj 0.4 MG IVP (04:40)
[2024-11-09] MEDS: metroNIDAZOLE 500 MG/100 ML PIGGYBACK 100 MG IVPB ×3 (05:06→20:17)
--- NOTE | 2024-11-09 05:51 | PC.NURSE ---
Pt NPO, denies N/V, has RLQ abd pain, increased with movement, aqua K pad and PRN iv pain meds used to relieve pain. IND in room.
[2024-11-09 07:49] VITALS: BP 113/76; PULSE 66; RESP 16; TEMP 36.7; O2SAT 100
--- NOTE | 2024-11-09 08:08 | PM.GSCN ---
History of Present Illness Consult details Date Seen: 11/09/24 Consult date: 11/09/24 Narrative: The patient is a 24-year-old female who developed right lower abdominal pain abruptly yesterday at 2:00 p.m.. She states that the pain began in the right and stayed on the right side. It radiated to her back. She has never had pain like this before. She states that walking made the pain worse but pain medications take the pain away. She denies any urinary symptoms. She has not had a fever. She has had nausea but no vomiting. No change in bowel habits such as diarrhea. She does have irregular menses. She states that she has her period approximately every 1.5 months. Denies any vaginal discharge. [facility] Social History What is your current living situation?: I presently have a place to live Problems where you live: no known problems Problems where you live details: none In the past 12 months, utilities in danger of being shut off: no In past 12 months, lack of transportation kept you from medical appts, meetings, work, or getting things needed for daily living: no In the past 12 mos, have been you worried that your food would run out before you had money to buy more?: never true In the past 12 mos, the food you bought just didn't last and you didn't have money to buy more?: never true Smoking Status: Never smoker Do you use any of these nicotine containing products: None How often do you have a drink containing alcohol: never AUDIT-C Alcohol total score: 0 Non-prescribed substance use: denies use Caffeine: No How often does anyone, including family, friends and others, physically hurt you: never How often does anyone, including family, friends and others, insult or talk down to you: never How often does anyone, including family, friends and others, threaten you with harm: never How often does anyone, including family, friends and others, scream or curse at you: never service: No Meds Home Medications and Allergies Home Medications ?Medication ?Instructions ?Recorded ?Confirmed ?Type norelgestromin 150 mcg-e.estradiol 1 patch transdermal Q7D 02/19/23 11/09/24 History 35 mcg/24 hr weekly transderm patch (Zafemy) Allergies Allergy/AdvReac Type Severity Reaction Status Date / Time amoxicillin Allergy Verified 11/08/24 23:15 Exam Narrative: Exam Narrative: General: Patient appears uncomfortable in bed. CV: Regular rate and rhythm Respiratory: Breathing nonlabored on room air Abdomen: No scars. Abdomen is flat. Pain in suprapubic region and right lower quadrant. Most tender in the right lower quadrant. No rebound or guarding. Const: Vital Signs, click to edit/add: Vital Signs - 24 hr 11/08/24 21:16 11/08/24 21:33 11/08/24 22:01 Temperature 98.3 F Pulse Rate 104 H 93 Pulse Rate [Left P ulse Oximeter] 82 Pulse Rate [Pulse Oximeter] Respiratory Rate 16 Blood Pressure Blood Pressure [Le ft Arm] Blood Pressure [Ri ght Upper Arm] 118/84 Pulse Oximetry 98 100 97 Oxygen Delivery Me thod Room Air 11/08/24 22:02 11/08/24 22:15 11/08/24 22:21 Temperature Pulse Rate 93 86 88 Pulse Rate [Left P ulse Oximeter] Pulse Rate [Pulse Oximeter] Respiratory Rate Blood Pressure 115/80 116/85 Blood Pressure [Le ft Arm] Blood Pressure [Ri ght Upper Arm] Pulse Oximetry 98 97 98 Oxygen Delivery Me thod 11/08/24 22:22 11/08/24 22:30 11/08/24 22:42 Temperature Pulse Rate 88 82 Pulse Rate [Left P ulse Oximeter] Pulse Rate [Pulse Oximeter] Respiratory Rate Blood Pressure 123/89 Blood Pressure [Le ft Arm] Blood Pressure [Ri ght Upper Arm] Pulse Oximetry 99 98 Oxygen Delivery Me thod 11/09/24 02:41 11/09/24 02:41 11/09/24 07:49 Temperature 98.3 F 98.0 F Pulse Rate Pulse Rate [Left P ulse Oximeter] Pulse Rate [Pulse Oximeter] 77 66 Respiratory Rate 16 16 16 Blood Pressure Blood Pressure [Le ft Arm] 120/87 113/76 Blood Pressure [Ri ght Upper Arm] Pulse Oximetry 100 98 100 Oxygen Delivery Me thod Room Air Room Air Room Air Results Labs Labs: Abnormal lab results 11/08/24 11/08/24 Range/Units 21:45 22:50 WBC 22.37 H (4.50-11.00) K/uL Neut % (Auto) 73.2 H (42.0-72.0) % Neut # (Auto) 16.40 H (1.7-7.0) K/uL Lymph # (Auto) 4.60 H (0.90-2.90) K/uL [place] # (Auto) 1.20 H (0.00-0.90) K/UL Procalcitonin < 0.03 L (<0.50) ng/mL Ur Leukocyte Esterase Trace A (Negative) Ur Squamous Epith Cells Moderate A (None-Few) Amorphous Sediment Few A (None) Urine Bacteria Few A (None) Diabetes panel 11/08/24 Range/Units 21:45 Sodium 136 (135-149) mmol/L Potassium 3.7 (3.6-5.1) mmol/L Chloride 103 (96-114) mmol/L Carbon Dioxide 25 (20-32) mmol/L BUN 16 (5-24) mg/dL Creatinine 0.6 (0.5-1.5) mg/dL Glucose 100 (60-115) mg/dL Calcium 9.3 (8.4-10.6) mg/dL AST 32 (12-35) U/L ALT 20 (4-35) U/L Alkaline Phosphatase 64 (40-150) U/L Total Protein 7.5 (6.0-8.3) g/dL Albumin 4.4 (3.3-5.0) g/dL Calcium panel 11/08/24 Range/Units 21:45 Calcium 9.3 (8.4-10.6) mg/dL Albumin 4.4 (3.3-5.0) g/dL Pituitary panel 11/08/24 Range/Units 21:45 Sodium 136 (135-149) mmol/L Potassium 3.7 (3.6-5.1) mmol/L Chloride 103 (96-114) mmol/L Carbon Dioxide 25 (20-32) mmol/L BUN 16 (5-24) mg/dL Creatinine 0.6 (0.5-1.5) mg/dL Glucose 100 (60-115) mg/dL Calcium 9.3 (8.4-10.6) mg/dL Adrenal panel 11/08/24 Range/Units 21:45 Sodium 136 (135-149) mmol/L Potassium 3.7 (3.6-5.1) mmol/L Chloride 103 (96-114) mmol/L Carbon Dioxide 25 (20-32) mmol/L BUN 16 (5-24) mg/dL Creatinine 0.6 (0.5-1.5) mg/dL Glucose 100 (60-115) mg/dL Calcium 9.3 (8.4-10.6) mg/dL Total Bilirubin 0.5 (0.1-1.5) mg/dL AST 32 (12-35) U/L ALT 20 (4-35) U/L Alkaline Phosphatase 64 (40-150) U/L Total Protein 7.5 (6.0-8.3) g/dL Albumin 4.4 (3.3-5.0) g/dL All other labs normal. Imaging Additional studies: CT scan abdomen pelvis 11/08/2024: IMPRESSION: 1. No definite acute findings to explain the patient`s symptoms. Normal appearance of the appendix. 2. Possible mild circumferential bladder wall thickening. Correlate with urinalysis to rule out cystitis. 3. No definite evidence of reproductive organ pathology, but these structures are not well evaluated on CT. Pelvic ultrasound could be considered for more detailed evaluation, if clinically indicated. Dictated by Angel Grijalva MD @ 11/08/2024 11:38:48 PM Pelvic/transvaginal ultrasound: 11/08/2024: Impression: 1. Mild bladder wall thickening suspected. Correlation for UTI/cystitis recommended. No other acute sonographic abnormality appreciated. 2. There is a 1.0 centimeter fibroid. Dictated by Tadeo Horne MD @ 11/09/2024 12:59:30 AM Progress Note:A&P Assessment and plan (1) Abdominal pain, RLQ: Status: Acute (2) Leukocytosis: Status: Acute Plan The patient is a 24-year-old female with right lower quadrant pain and leukocytosis. Imaging is otherwise unrevealing at this time. I reviewed the images myself and with the radiologist. The appendix is nondilated, no appendicolith is noted. The appendix is air-filled. There is no surrounding inflammation. Given these findings, appendicitis, even early seems unlikely. -bladder wall thickening noted, however UA was not particularly remarkable for infection. -no sign of ovarian pathology. Would recommend gynecologic consultation for consideration of other sources for pain. -agree with antibiotics for now given markedly elevated WBC.
[2024-11-09 08:47] LABS: Basophils Percent Auto 0.2 % (0.0-3.0); Eosinophils Percent Auto 0.5 % (0.0-7.0); Hemoglobin* 12.1 gm/dL (12.0-16.0); Immature Granulocytes Pct Auto 0.3 %; Lymphocytes Percent Auto 24.2 % (20-44); Mean Corpuscular HGB Conc 34 gm/dL (32-36); Mean Corpuscular Hemoglobin 29 pg (26-34); Mean Corpuscular Volume 86 fL (80-100); Monocytes Percent Auto 4.2 % (0.0-11.0); Neutrophils Percent Auto 70.6 % (42.0-72.0); Platelet Count* 263 K/uL (140-440); RDW Coefficient of Variation % 12.4 % (11.5-15.5); Red Blood Count 4.17 m/uL (4.00-5.20)
[2024-11-09 08:50] LABS: Slide Review Reflex No
[2024-11-09 09:07] LABS: C Reactive Protein* 3.6 mg/dL (0.5-1.0)
[2024-11-09 11:13] LABS: Bacterial Vaginosis* Negative (Negative); Candida glab/krus NOT DETECTED (No Detected); Candida species NOT DETECTED (No Detected); Trichomonas vaginalis NOT DETECTED (No Detected)
[2024-11-09 11:43] LABS: Chlamydia DNA Amplified* NOT DETECTED (No Detected); GC DNA Amplified* NOT DETECTED (No Detected)
--- NOTE | 2024-11-09 11:54 | PM.GYNCN1 ---
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 Denies ever having this pain previously. No hx of kidney stone, STIs, abdominal surgery. Patient denies fever, chills, chest pain, SOB, n/v, headache, vision changes, or dizziness. Patient denies vaginal bleeding or abdominal vaginal discharge. Has irregular menses but no dysmenorrhea. Denies hx of STIs or PID. Is sexually active with 1 partner. Denies hx of dyspareunia. Pelvic US (11/08/24): Uterus: 7.1 x 3.0 x 4.2 centimeters. Right subserosal 1.0 centimeter fibroid. Endometrium: 4 millimeters. Endometrium appears homogeneous. Right ovary: 3.3 x 2.0 x 3.2 centimeters. There is a 1.8 centimeter simple appearing cyst. Arterial and venous waveforms detected. Left ovary: 2.9 x 1.5 x 1.5 centimeters. Unremarkable sonographic appearance. Arterial and venous waveforms detected. Other: Mild bladder wall thickening suspected. Impression: 1. Mild bladder wall thickening suspected. Correlation for UTI/cystitis recommended. No other acute sonographic abnormality appreciated. 2. There is a 1.0 centimeter fibroid. cc:: CC: April May MD [facility] Social History What is your current living situation?: I presently have a place to live Problems where you live: no known problems Problems where you live details: none In the past 12 months, utilities in danger of being shut off: no In past 12 months, lack of transportation kept you from medical appts, meetings, work, or getting things needed for daily living: no In the past 12 mos, have been you worried that your food would run out before you had money to buy more?: never true In the past 12 mos, the food you bought just didn't last and you didn't have money to buy more?: never true Smoking Status: Never smoker Do you use any of these nicotine containing products: None How often do you have a drink containing alcohol: never AUDIT-C Alcohol total score: 0 Non-prescribed substance use: denies use Caffeine: No How often does anyone, including family, friends and others, physically hurt you: never How often does anyone, including family, friends and others, insult or talk down to you: never How often does anyone, including family, friends and others, threaten you with harm: never How often does anyone, including family, friends and others, scream or curse at you: never service: No Meds Home Medications and Allergies Home Medications ?Medication ?Instructions ?Recorded ?Confirmed ?Type norelgestromin 150 mcg-e.estradiol 1 patch transdermal Q7D 02/19/23 11/09/24 History 35 mcg/24 hr weekly transderm patch (Zafemy) Allergies Allergy/AdvReac Type Severity Reaction Status Date / Time amoxicillin Allergy Verified 11/08/24 23:15 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 + guarding, No rebound Skin: No lesions or rashes Lower extremities: No edema or erythema Pelvic exam: Mons normal, clitoris normal, urethral meatus normal. Labia minora and majora normal in appearance bilaterally. Perineum and anus normal appearance. Vaginal introitus normal appearance. Vagina is normally estrogenized with normal amount of physiologic discharge. Cervix pink and without lesion - friable. Bimanual exam reveals uterus to be soft, mobile, anteverted, of normal size and texture. Uterus non tender. +CMT. No palpable adnexal masses. Tenderness again localized to the RUQ. 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 Labs Labs: Short CBC 11/08/24 11/09/24 Range/Units 21:45 08:27 WBC 22.37 H 19.50 H (4.50-11.00) K/uL Hgb 13.3 12.1 (12.0-16.0) gm/dL Hct 39.4 36.0 (33.0-51.0) % Plt Count 318 263 (140-440) K/uL BMP 11/08/24 21:45 Sodium 136 Potassium 3.7 Chloride 103 Carbon Dioxide 25 BUN 16 Creatinine 0.6 Glucose 100 Calcium 9.3 Liver Function 11/08/24 Range/Units 21:45 Total Bilirubin 0.5 (0.1-1.5) mg/dL Direct Bilirubin 0.3 (0.0-0.5) mg/dL AST 32 (12-35) U/L ALT 20 (4-35) U/L Alkaline Phosphatase 64 (40-150) U/L Albumin 4.4 (3.3-5.0) g/dL Urine 11/08/24 Range/Units 22:50 Urine Color Yellow (Yellow) Urine Appearance Clear (Clear) Urine pH 7.0 (5.0-8.5) Ur Specific [place] 1.010 (1.000-1.030) Urine Protein Negative (Negative) Urine Glucose (UA) Negative (Negative) Assessment and Plan Assessment and plan (1) Abdominal pain, RLQ: Status: Acute (2) Leukocytosis: Status: Acute Plan - Vaginitis panel and GC/Chlamydia sent - Discuss with patient empirically treating for PID. A presumptive diagnosis should be made and treatment started in a sexually active woman experiencing pelvic/lower abdominal pain, if no other cause for illness can be identified. Rationale for low threshold for treatment is due to severe consequences if PID is not appropriately treated suggest worsening infection/sepsis, compromise of the reproductive tract causing infertility/higher rate of ectopic. Patient is amenable to this plan. Given that she is still quite tender in the lower quadrants/pelvic area, would continue IV antibiotics until clinical improvement in symptom and down trending WBC. - antibiotics to treat pelvic inflammatory disease: Ceftriaxone 1 g IV Q24H, doxycycline 100 mg IV q.12 hours, and metronidazole 500 mg IV q.12 hours
[2024-11-09 11:56] VITALS: BP 105/59; PULSE 79; RESP 16; TEMP 37.2; O2SAT 99
[2024-11-09] MEDS: DOXYCYCLINE HYCLATE 100 MG in 0.9 % SODIUM CHLORIDE Mini-bag 100 ML IVPB (14:29)
--- NOTE | 2024-11-09 16:14 | PM.IMPN1 ---
Assessment and Plan Assessment and plan (1) Abdominal pain, RLQ: Problem comment: Moderately severe abdominal pain with leukocytosis. Moderately severe tenderness. Imaging and other lab tests are reassuring. Currently being treated for intra-abdominal infection or pelvic infection including appendicitis and PID. Status: Acute (2) Leukocytosis: Problem comment: Trend Status: Acute Plan Continue in hospital for treatment of infection. This may account for her clinical improvement today. Possible discharge tomorrow if continue to improve. Total Time Spent Total Time Spent: Total time spent today is 40 minutes in review of outside records, discussion with other providers and patient and coordination of care. Subjective Date Seen: 11/09/24 Interval history: 24-year-old female, 0, admitted to the hospital with onset of abdominal pain at about 2:00 p.m. yesterday. The pain occurred while she was preparing lunch. It was primarily lower abdomen more to the right. Initially she thought it felt like her normal menstrual cramps. She waited for to get better as that would normally be and when it did not get better she came to the emergency room. She is not aware of any fever. She has not had vomiting but she does report that her appetite has been diminished and she has had little to eat after the onset of pain. She has not had any constipation or diarrhea. No blood in her stool. The pain does not substantially radiate. She has not had any urinary symptoms, dysuria or frequency or urgency. She has no previous history of significant abdominal pain. No previous history of acute or chronic gastrointestinal or genitourinary illness or infection. She is sexually active with her boyfriend. In the emergency department she had evaluation including a CT of the abdomen pelvis which was normal, and ultrasound of pelvis which was normal except mild bladder wall thickening. She did have a 1 cm fibroid. Urinalysis was unremarkable[place] [id number] with a left shift. Abdominal exam was noted both for marked tenderness. She was started on metronidazole and ceftriaxone. Testing for GC and chlamydia were also negative This morning she continued to have a lot of pain and general feeling of unwell. I appreciate consultations by General surgery and OBGYN. Exam Narrative: Exam Narrative: Initial exam she is alert and appears in mild to moderate discomfort in bed. Oropharynx is normal. Respirations are clear to auscultation. Cardiovascular: S1, S2, regular rate and rhythm. Abdomen: Bowel sounds are present. Abdomen is tender primarily in the lower abdomen where she has [id number] diffuse tenderness a little more tenderness on the right than the left. There is no mass. She has minimal right upper quadrant tenderness. No peritonitis. Extremities without edema good peripheral pulses. No rash. Re-examination this afternoon she is feeling better. Repeat examination shows still low abdominal tenderness but significantly improved from this morning. Const: Vital Signs, click to edit/add: Vital Signs - 24 hr 11/08/24 21:16 11/08/24 21:33 11/08/24 22:01 Temperature 98.3 F Pulse Rate 104 H 93 Pulse Rate [Left P ulse Oximeter] 82 Pulse Rate [Pulse Oximeter] Respiratory Rate 16 Blood Pressure Blood Pressure [Le ft Arm] Blood Pressure [Ri ght Upper Arm] 118/84 Pulse Oximetry 98 100 97 Oxygen Delivery Ny thod Room Air 11/08/24 22:02 11/08/24 22:15 11/08/24 22:21 Temperature Pulse Rate 93 86 88 Pulse Rate [Left P ulse Oximeter] Pulse Rate [Pulse Oximeter] Respiratory Rate Blood Pressure 115/80 116/85 Blood Pressure [Le ft Arm] Blood Pressure [Ri ght Upper Arm] Pulse Oximetry 98 97 98 Oxygen Delivery Me thod 11/08/24 22:22 11/08/24 22:30 11/08/24 22:42 Temperature Pulse Rate 88 82 Pulse Rate [Left P ulse Oximeter] Pulse Rate [Pulse Oximeter] Respiratory Rate Blood Pressure 123/89 Blood Pressure [Le ft Arm] Blood Pressure [Ri ght Upper Arm] Pulse Oximetry 99 98 Oxygen Delivery Me thod 11/09/24 02:41 11/09/24 02:41 11/09/24 07:49 Temperature 98.3 F 98.0 F Pulse Rate Pulse Rate [Left P ulse Oximeter] Pulse Rate [Pulse Oximeter] 77 66 Respiratory Rate 16 16 16 Blood Pressure Blood Pressure [Le ft Arm] 120/87 113/76 Blood Pressure [Ri ght Upper Arm] Pulse Oximetry 100 98 100 [facility] Room Air Room Air 11/09/24 11:56 Temperature 99.0 F Pulse Rate Pulse Rate [Left P ulse Oximeter] Pulse Rate [Pulse Oximeter] 79 Respiratory Rate 16 Blood Pressure Blood Pressure [Le ft Arm] 105/59 L Blood Pressure [Ri ght Upper Arm] Pulse Oximetry 99 Oxygen Delivery Me thod Room Air Documenting provider has reviewed patient's vital signs: yes Labs Labs: Laboratory Results - last 24 hr 11/08/24 11/08/24 11/09/24 21:45 22:50 01:30 WBC 22.37 H RBC 4.67 Hgb 13.3 Hct 39.4 MCV 84 MCH 29 MCHC 34 RDW Coeff of Home 12.2 Plt Count 318 Neut % (Auto) 73.2 H Lymph % (Auto) 20.4 [place] % (Auto) 5.5 Eos % (Auto) 0.5 Baso % (Auto) 0.2 Neut # (Auto) 16.40 H Lymph # (Auto) 4.60 H [place] # (Auto) 1.20 H Eos # (Auto) 0.10 Baso # (Auto) 0.00 Abs Immat Gran (auto) 0.00 Imm/Tot Granulo (auto) 0.2 Sodium 136 Potassium 3.7 Chloride 103 Carbon Dioxide 25 Anion Gap 8 BUN 16 Creatinine 0.6 Estimated Creat Clear 91.86 Estimated GFR 128 Glucose 100 Lactate 1.2 Calcium 9.3 Total Bilirubin 0.5 Direct Bilirubin 0.3 AST 32 ALT 20 Alkaline Phosphatase 64 C-Reactive Protein 0.9 Total Protein 7.5 Albumin 4.4 Lipase 62 Procalcitonin < 0.03 L HCG, Qual Negative Urine Color Yellow Urine Appearance Clear Urine pH 7.0 Ur Specific [place] 1.010 Urine Protein Negative Urine Glucose (UA) Negative Urine Ketones Negative Urine Blood Negative Urine Nitrite Negative Urine Bilirubin Negative Urine Urobilinogen 0.2 Ur Leukocyte Esterase Trace A Urine RBC 0-2 Urine WBC 2-5 Ur Squamous Epith Cells Moderate A Amorphous Sediment Few A Urine Bacteria Few A Urine HCG, Qual Negative Vaginal Bacterial Vaginosis Vaginal Amina species Vag C. glabrata/krusei Vag T. vaginalis C.trachomatis Ampl DNA N.gonorrhoeae Ampl DNA 11/09/24 11/09/24 08:27 09:40 WBC 19.50 H RBC 4.17 Hgb 12.1 Hct 36.0 MCV 86 MCH 29 MCHC 34 RDW Coeff of Home 12.4 Plt Count 263 Neut % (Auto) 70.6 Lymph % (Auto) 24.2 [place] % (Auto) 4.2 Eos % (Auto) 0.5 Baso % (Auto) 0.2 Neut # (Auto) 13.80 H Lymph # (Auto) 4.70 H [place] # (Auto) 0.80 Eos # (Auto) 0.10 Baso # (Auto) 0.00 Abs Immat Gran (auto) 0.10 Imm/Tot Granulo (auto) 0.3 Sodium Potassium Chloride Carbon Dioxide Anion Gap BUN Creatinine Estimated Creat Clear Estimated GFR Glucose Lactate Calcium Total Bilirubin Direct Bilirubin AST ALT Alkaline Phosphatase C-Reactive Protein 3.6 H Total Protein Albumin Lipase Procalcitonin HCG, Qual Urine Color Urine Appearance Urine pH Ur Specific [place] Urine Protein Urine Glucose (UA) Urine Ketones Urine Blood Urine Nitrite Urine Bilirubin Urine Urobilinogen Ur Leukocyte Esterase Urine RBC Urine WBC Ur Squamous Epith Cells Amorphous Sediment Urine Bacteria Urine HCG, Qual Vaginal Bacterial Vaginosis Negative Vaginal Amina species NOT DETECTED Vag C. glabrata/krusei NOT DETECTED Vag T. vaginalis NOT DETECTED C.trachomatis Ampl DNA NOT DETECTED N.gonorrhoeae Ampl DNA NOT DETECTED
[2024-11-09] MEDS: ACETAMINOPHEN 325 MG TABLET 650 MG PO (20:18)
[2024-11-09] MEDS: DOXYCYCLINE HYCLATE 100 MG PO (21:45)
[2024-11-09 23:57] VITALS: BP 97/68; PULSE 89; RESP 14; TEMP 36.4; O2SAT 100
[2024-11-10] MEDS: cefTRIAXone 2 GM in 0.9 % SODIUM CHLORIDE Mini-bag 100 ML IVPB (03:21)
[2024-11-10 03:24] VITALS: BP 101/62; PULSE 68; RESP 16; TEMP 37; O2SAT 99
[2024-11-10] MEDS: metroNIDAZOLE 500 MG/100 ML PIGGYBACK 100 MG IVPB (03:59)
[2024-11-10] MEDS: ONDANSETRON 2 MG/ML inj 4 MG IVP (04:05)
--- NOTE | 2024-11-10 06:11 | PC.NURSE ---
End of shift [id number]: A&O pleasant and cooperative. Pt denying pain throughout shift. reports an upset stomach. see eMAR for interventions. up at [place] in room. VSS. BS active, boyfriend at bedside overnight. using call light appropriately.
[2024-11-10 07:00] VITALS: BP 124/85; PULSE 74; RESP 16; TEMP 37.4; O2SAT 99
[2024-11-10 08:14] LABS: Basophils Absolute Auto 0.05 K/uL (0.00-0.30); Basophils Percent Auto 0.6 % (0.0-3.0); Eosinophils Absolute Auto 0.12 K/uL (0.00-0.50); Eosinophils Percent Auto 1.4 % (0.0-7.0); Hematocrit 38.1 % (33.0-51.0); Hemoglobin* 12.7 gm/dL (12.0-16.0); Immature Granulocytes Abs Auto 0.01 K/uL (0.00-0.30); Immature Granulocytes Pct Auto 0.1 %; Lymphocytes Absolute Auto 3.49 K/uL (0.90-2.90); Lymphocytes Percent Auto 40.5 % (20-44); Mean Corpuscular HGB Conc 33 gm/dL (32-36); Mean Corpuscular Hemoglobin 29 pg (26-34); Mean Corpuscular Volume 85 fL (80-100); Monocytes Percent Auto 5.2 % (0.0-11.0); Neutrophils Percent Auto 52.2 % (42.0-72.0); Platelet Count* 296 K/uL (140-440); RDW Coefficient of Variation % 12.4 % (11.5-15.5); Red Blood Count 4.46 m/uL (4.00-5.20); White Blood Count* 8.62 K/uL (4.50-11.00)
[2024-11-10 08:15] LABS: Slide Review Reflex No
[2024-11-10 08:29] LABS: C Reactive Protein* 3.4 mg/dL (0.5-1.0)
--- NOTE | 2024-11-10 08:37 | PM.GSPN ---
Subjective Subjective Date Seen: 11/10/24 Interval history: Jose R feels better. She states that she thinks antibiotics gave her an upset stomach but otherwise her pain is gone. She is passing some gas from below. Exam Narrative: Exam Narrative: General: No acute distress Abdomen: Soft. Very very minimally tender in the right lower quadrant without guarding or rebound. Const: Vital Signs, click to edit/add: Vital Signs - 24 hr 11/09/24 11:56 11/09/24 23:57 11/10/24 03:24 Temperature 99.0 F 97.5 F L 98.6 F Pulse Rate [Pulse Oximeter] 79 89 68 Respiratory Rate 16 14 16 Blood Pressure [Le ft Arm] 105/59 L 97/68 101/62 Pulse Oximetry 99 100 99 Oxygen Delivery Me thod Room Air Room Air Labs/Imaging Labs Labs: White blood cell count is normal. Progress Note:A&P Assessment and plan (1) Abdominal pain, RLQ: Status: Acute Plan The patient is a 24-year-old female with abdominal pain of unclear etiology. Fortunately leukocytosis has resolved as well as her pain. Recommend treatment with antibiotics for presumptive appendicitis (though CT was normal) and gynecologic infection. She understands that if she were to develop worsening symptoms she should return to be seen and I would recommend repeat imaging at that time. Otherwise she could discharge home later today on oral antibiotics.
--- NOTE | 2024-11-10 08:38 | P.GYNPN_ITS ---
Progress Note: A&P Assessment and plan (1) Abdominal pain, RLQ: Problem details: Moderately severe abdominal pain with leukocytosis. Moderately severe tenderness. Imaging and other lab tests are reassuring. Currently being treated for intra-abdominal infection or pelvic infection including appendicitis and PID. Status: Acute Assessment and Plan: The pain has resolved, as has leukocytosis. Without definitive diagnosis cause of her pain, I favor completion of current empiric antibiotic regimen for PID of doxycycline b.i.d. and metronidazole b.i.d. for 2 weeks. We discussed the use of probiotics and fermented foods during the use of these antibiotics. I recommended that she take doxycycline with food. She was also invited to make a follow-up visit in clinic to discuss longstanding infrequent and painful menses. Time Spent With Patient Total time spent: 10 min GLOBAL CATEGORY MANAGER- PN:Subj Non-OR Subjective Time Seen by Provider: 08:45 Date Seen: 11/10/24 Interval history: Dahlia is a 24 yo G0 woman on hospital day 2 after admission for acute onset right-sided abdominal pain on 11/09/2024. She had cervical motion tenderness on exam from 11/09/2024. Pertinent testing has included: Gonorrhea and chlamydia testing was negative. NAAT for Trichomonas as well as other vaginitis was negative as well. Preliminary urine culture from November 08 shows no growth. Her pelvic ultrasound was unremarkable, aside from from mild bladder wall thickening. CT of the abdomen and pelvis was unremarkable as well, aside from mild bladder wall thickening. She was started on empiric antibiotics for PID yesterday: Ceftriaxone 1 g IV Q24H, doxycycline 100 mg IV q.12 hours, and metronidazole 500 mg IV q.12 hours Of note, her complete blood count is entirely normal today. It has been normal since 11/08/2024, with the exception of elevated white blood cell count with a left shift. This has fallen from 20.37 on November 08, to 19.5 on November 09, to 8.62 today. She reports feeling better overall. Pain has essentially resolved; she feels a little bit of discomfort to palpation in the right lower quadrant. She is tolerating a regular diet. She feels some unease in her stomach, but no vomiting. She has not had a recent bowel movement. GLOBAL CATEGORY MANAGER-PN: Obj Exam Physical Exam: Vital signs: Temp Pulse Resp BP Pulse Ox O2 Del Method 98.6 F 68 16 101/62 99 Room Air 11/10/24 03:24 11/10/24 03:24 11/10/24 03:24 11/10/24 03:24 11/10/24 03:24 11/09/24 23:57 Narrative: Physical exam: Vitals as noted above. General: No acute distress Psych: Alert and oriented x 3, full affect HEENT: Normocephalic, atraumatic Abdomen: Normoactive bowel sounds, soft, no tenderness, rebound, or guarding, no masses, no hepatosplenomegaly, no hernias GLOBAL CATEGORY MANAGER - PN: Obj Data Labs Labs: Laboratory Results - last 24 hr 11/09/24 11/09/24 11/10/24 08:27 09:40 07:53 WBC 19.50 H 8.62 RBC 4.17 4.46 Hgb 12.1 12.7 Hct 36.0 38.1 MCV 86 85 MCH 29 29 MCHC 34 33 RDW Coeff of Home 12.4 12.4 Plt Count 263 296 Neut % (Auto) 70.6 52.2 Lymph % (Auto) 24.2 40.5 [place] % (Auto) 4.2 5.2 Eos % (Auto) 0.5 1.4 Baso % (Auto) 0.2 0.6 Neut # (Auto) 13.80 H 4.50 Lymph # (Auto) 4.70 H 3.49 H [place] # (Auto) 0.80 0.40 Eos # (Auto) 0.10 0.12 Baso # (Auto) 0.00 0.05 Abs Immat Gran (auto) 0.10 0.01 Imm/Tot Granulo (auto) 0.3 0.1 C-Reactive Protein 3.6 H 3.4 H Vaginal Bacterial Vaginosis Negative Vaginal Amina species NOT DETECTED Vag C. glabrata/krusei NOT DETECTED Vag T. vaginalis NOT DETECTED C.trachomatis Ampl DNA NOT DETECTED N.gonorrhoeae Ampl DNA NOT DETECTED
[2024-11-10] MEDS: DOXYCYCLINE HYCLATE 100 MG PO (08:43)
[2024-11-10] MEDS: SODIUM CHLORIDE 0.9 % (FLUSH) 10 ML SYRINGE 5 ML IVF (08:46)
--- NOTE | 2024-11-10 10:45 | PC.NURSE ---
Discharge: patient alert and oriented, VSS, denies N/V/SOB or pain. Patient on RA, tolerating a reg. diet. Patient states being slight nauseous after taking antibiotics, development writer encouraged patient to take with food. Patient discharged today at 1040 to home accompanied by boyfriend. IV removed intact. Belongings sheet signed and discharge instructions given and signed. Patient verbalized understanding of instructions.
--- NOTE | 2024-11-10 15:32 | PM.DS1 ---
DS: Providers Provider Date Seen: 11/10/24 Date of admission: 11/09/24 02:21 Primary care physician: Not a Local Provider Admitting Clinician: April May MD Attending Physician on discharge: Abhinav Hinson MD Date of Discharge: 11/10/24 DS: Diagnosis Discharge Diagnosis (1) Abdominal pain, RLQ: Status: Acute Problem details: Moderately severe abdominal pain with leukocytosis. Moderately severe tenderness. Imaging, including CT abdomen and pelvis and ultrasound of the pelvis, and other lab tests are reassuring. Currently being treated for intra-abdominal infection or pelvic infection including appendicitis and PID. Continue treatment with doxycycline and metronidazole for PID as an outpatient DS: Summary Hospital Course Hospital Course: 24-year-old female, 0, admitted to the hospital with onset of abdominal pain at about 2:00 p.m. yesterday. The pain occurred while she was preparing lunch. It was primarily lower abdomen more to the right. Initially she thought it felt like her normal menstrual cramps. She waited for to get better as that would normally be and when it did not get better she came to the emergency room. She is not aware of any fever. She has not had vomiting but she does report that her appetite has been diminished and she has had little to eat after the onset of pain. She has not had any constipation or diarrhea. No blood in her stool. The pain does not substantially radiate. She has not had any urinary symptoms, dysuria or frequency or urgency. She has no previous history of significant abdominal pain. No previous history of acute or chronic gastrointestinal or genitourinary illness or infection. She is sexually active with her boyfriend. In the emergency department she had evaluation including a CT of the abdomen pelvis which was normal, and ultrasound of pelvis which was normal except mild bladder wall thickening. She did have a 1 cm fibroid. Urinalysis was [place]remarkable[place] [id number] with a left shift. Abdominal exam was noted both for marked tenderness. She was started on metronidazole and ceftriaxone. Testing for GC and chlamydia were also negative This morning she continued to have a lot of pain and general feeling of unwell. I appreciate consultations by General surgery and OBGYN. Evaluation did not show any indication for surgery. PID remained a possible diagnosis and so antibiotics including metronidazole and doxycycline started for this. Clinically she improved overnight with minimal pain today and only mild abdominal tenderness. She is tolerating an oral diet though she does have nausea presumably related to the antibiotics. She is anxious to go home. Status at Discharge Overall status at discharge: patient is progressing back to baseline Time Spent with Patient Time attestation: Total time spent providing and/or coordinating discharge services: Time spent: Less than 30 minutes Exam Narrative: Exam Narrative: Abdomen is soft with mild low abdominal tenderness. No mass or peritonitis. Const: Vital Signs, click to edit/add: Vital Signs - 24 hr 11/09/24 23:57 11/10/24 03:24 11/10/24 07:00 Temperature 97.5 F L 98.6 F Pulse Rate [Pulse Oximeter] 89 68 74 Respiratory Rate 14 16 16 Blood Pressure [Le ft Arm] 97/68 101/62 Pulse Oximetry 100 99 Oxygen Delivery Me thod Room Air 11/10/24 07:00 Temperature 99.3 F Pulse Rate [Pulse Oximeter] 74 Respiratory Rate 16 Blood Pressure [Le ft Arm] 124/85 Pulse Oximetry 99 Oxygen Delivery Me thod Room Air Documenting provider has reviewed patient's vital signs: yes DS: Data Data Completed and Pending Labs on day of discharge: Labs from last 24 hours 11/10/24 07:53 WBC 8.62 RBC 4.46 Hgb 12.7 Hct 38.1 MCV 85 MCH 29 MCHC 33 RDW Coeff of Home 12.4 Plt Count 296 Neut % (Auto) 52.2 Lymph % (Auto) 40.5 [place] % (Auto) 5.2 Eos % (Auto) 1.4 Baso % (Auto) 0.6 Neut # (Auto) 4.50 Lymph # (Auto) 3.49 H [place] # (Auto) 0.40 Eos # (Auto) 0.12 Baso # (Auto) 0.05 Abs Immat Gran (auto) 0.01 Imm/Tot Granulo (auto) 0.1 C-Reactive Protein 3.4 H Preliminary micro results at discharge 11/09/24 01:35 Blood Culture - Preliminary Blood NO GROWTH AFTER 24 HOURS 11/09/24 01:30 Blood Culture - Preliminary Blood NO GROWTH AFTER 24 HOURS 11/08/24 22:50 Urine Culture - Preliminary Urine,Clean Catch No growth. Discharge Plan Discharge Disposition: Home, Self-Care Date of Admission: 11/09/24 02:21 Attending Provider on Discharge: Martin Hinson Consulting Providers: Sunshine Pak; Bobbi Rivera; Nani Grover; Yi German Primary Care Provider: Provider,Not a Local Condition: Improved Anticipated Discharge Date/Time: 11/10/24 09:01 Discharge Medications: New doxycycline hyclate 100 mg Tablet 100 mg PO BID Qty: 26 0RF metronidazole 500 mg tablet 500 mg PO BID Qty: 26 0RF ondansetron 4 mg tablet,disintegrating 4 mg PO Q6H PRN (Reason: Nausea) Qty: 20 0RF Continued norelgestromin-ethin.estradiol [Zafemy] 150-35 mcg/24 hr patch weekly 1 patch transdermal Q7D Discharge Orders: Discharge Order (Routine); Ordered 11/10/24 Ordered By: Martin Hinson Patient Education: Doxycycline (By mouth), Metronidazole (By mouth), Abdominal Pain (DC) Activity Level: No Restrictions Discharge Diet: Regular Follow Up Appointments: Provider,Not a Local [Primary Care Provider] - Yi German MD [Staff Physician] - 11/30/24 1:45 pm () Forms: [employer] Info Instructions
== END 2024-11-10 10:40 | disposition home or self-care (01) ==
LOC: ED 11-09 01:33 → MEDSURG 11-09 02:23
PROVIDERS: Family Medicine; Obstetrics & Gynecology; Admitting Provider Internal Medicine; Emergency Provider Family Medicine; Visit Provider Internal Medicine
DX: R10.31 Right lower quadrant pain (principal); D72.829 Elevated white blood cell count, unspecified; I10 Essential (primary) hypertension
CPT/HCPCS: 36415; 71046; 74177; 76830; 76856; 80048; 80076; 81001; 81025; 81513; 83605; 83690; 84145; 84703; 85025; 86140; 87040; 87086; 87481; 87491; 87591; 87661; 93976; 96361; 96365; 96366; 96367; 96368; 96375; 96376; 99285; A9270; G0378; J0696; J1171; J1836; J2405; J7030; Q9967